=== PATIENT | male | born 1955 | race Caucasian/White ===

== ENCOUNTER 2018-02-14 22:23 | Emergency (ER) | payer BC, MEDICARE ==
[~2018-02-14] VITALS: Ht 170.2 cm; Wt 74.8 kg
--- NOTE | 2018-02-14 22:23 | NUR ---
ARRIVAL PATIENT ARRIVED VIA [facility]. NOTED COPIOUS AMOUNT OF HUNTER BLOOD, PUNGENT SMELL, AND DRIED BROWN BLOOD TO FACE AND CHEST. MOVED TO ER BED WITH ASSIST X4. SL X2 INITIATED. LABS DRAWN. DR. OLIVIER IN TO SEE PT. FAMILY AT BEDSIDE.
[2018-02-14] MEDS ORDERED: NS 1000ML 1,000 ML STA (22:25)
[2018-02-14] MEDS ORDERED: NS 1000ML 1,000 ML ONE (22:27)
[2018-02-14 22:30] VITALS: BP 126/75
[2018-02-14 22:30] LABS: BASOPHIL # 0.1 10^3/uL (0.0-0.1); BASOPHIL % 0.7 % (0.0-0.2); EOSINOPHIL # 0.2 10^3/uL (0.0-0.2); EOSINOPHIL % 1.3 % (0.0-5.0); HEMOGLOBIN 13.9 g/dL (13.9-16.3); LYMPHOCYTES # 3.1 10^3/uL (1.0-4.8); LYMPHOCYTES % 21.8 % (24.0-44.0); MEAN CELL HGB 29.9 pg (26-34); MEAN CELL HGB CONCENTRATION 31.7 g/dL (33-37); MEAN CORP VOLUME 94.4 fL (78-100); MEAN PLATELET VOLUME 14.1 fL (7.8-11.0); MONOCYTES # 1.2 10^3/uL (0.3-0.8); MONOCYTES % 8.7 % (5.0-12.0); NEUTROPHIL # 9.5 10^3/uL (1.8-7.7); RED CELL DISTRIBUTION WIDTH 13.8 % (11.5-14.5); WHITE BLOOD CELL 14.2 10^3/uL (4.5-11.0)
--- NOTE | 2018-02-14 22:31 | ER.PDOC ---
General Chief Complaint: Requesting Medical Care Stated Complaint: GI BLEED Time seen by MD: 10:00 Source: patient, family History of Present Illness Initial Comments went to transfer him out of his seat and noticed large pool of bloody dark loose stool. He fell when he tried to stand up. She denies his having any prior history of ulcer,GI bleeding,abdominal surgery or issues, or being on blood thinners. Timing/Duration: 1 hour Severity/Quality: other (Shakes his head no when asked if he is having abdominal pain) Associated Symptoms: dark stools Prior symptoms/Treatment: No Similar symptoms previous, No Recenly Seen Allergies: Coded Allergies: naproxen (Unverified Allergy, Unknown, HIVES, TONGUE SWELLING, 02/14/18) Home Meds Reported Medications Carbidopa/Levodopa (SINEMET 25-100 MG TABLET) 1 Each Tablet, 1 EACH PO Q4, TABLET 02/14/18 Past Medical History Medical History: other (Guillian-Randolph; West Nile Virus) Surgical History: other (G tube) Constitutional: denies no symptoms reported, denies see HPI, denies chills, denies diaphoresis, denies fever, denies malaise; weakness; denies other EENTM: denies no symptoms reported, denies see HPI, denies eye pain, denies blurred vision, denies tearing, denies double vision, denies ear pain, denies ear discharge, denies nose pain, denies nose congestion, denies throat pain, denies throat swelling, denies mouth pain, denies mouth swelling, denies other Respiratory: denies no symptoms reported, denies see HPI, denies cough, denies orthopnea, denies shortness of breath, denies SOB with exertion, denies SOB at rest, denies stridor, denies wheezing, denies other Cardiovascular: denies no symptoms reported, denies see HPI, denies chest pain , denies edema, denies irregular heart rate, denies lightheadedness, denies palpitations, denies syncope, denies other ABD/GI (ROS): rectal bleeding Genitourinary: denies no symptoms reported, denies see HPI, denies burning, denies dysuria, denies discharge, denies frequency, denies flank pain, denies hematuria, denies incontinence, denies pain, denies urgency, denies other Skin: denies no symptoms reported, denies see HPI, denies change in color, denies change in hair/nails, denies dryness, denies lesions, denies lumps, denies rash, denies other All Other Systems: Reviewed and Negative Physical Exam General Appearance: WD/WN, Anxious, Moderate Distress EENT: eyes nml inspection, nml ENT inspection, pharynx nml Neck: nml inspection, non-tender Respiratory: chest non-tender, lungs clear, normal breath sounds, no respiratory distress, no accessory muscle use Cardiovascular: Normal Peripheral Pulses, Regular Rate, Rhythm, No Edema, No Gallop, No JVD, No Murmur Gastrointestinal: Normal Bowel Sounds, No Organomegaly, No Pulsatile Mass, Non Tender, Soft, Other (G tube in place with what appears to be black fluid dried in it) Pelvic: Normal External Exam Male Genitalia: Normal Genitalia Rectal: Normal Exam Back: Normal Inspection, No CVA Tenderness, No Vertebral Tenderness Extremities: Non-Tender, Normal Inspection, No Pedal Edema, No Calf Tenderness , Normal Capillary Refill, Other Neurologic/Psychiatric: bead trimmer II-XII NML as Tested, No Motor/Sensory Deficits, Alert, Normal Mood/Affect, Oriented x 3, Motor Weakness, Other (weakness to all 4 extremities which is chronic) Skin: Warm/Dry, Pallor, Other (cool) Lymphatic: No Adenopathy Results/Orders Results/Orders Laboratory Tests Test 02/14/18 22:25 White Blood Count 14.2 10^3/uL (4.5-11.0) Red Blood Count 4.65 10^6/uL (4.50-5.90) Hemoglobin 13.9 g/dL (13.9-16.3) Hematocrit 43.9 % (37.0-53.0) Mean Corpuscular Volume 94.4 fL (78-100) Mean Corpuscular Hemoglobin 29.9 pg (26-34) Mean Corpuscular Hemoglobin Concent 31.7 g/dL (33-37) Red Cell Distribution Width 13.8 % (11.5-14.5) Platelet Count 232 10^3/uL (150-400) Mean Platelet Volume 14.1 fL (7.8-11.0) Neutrophils (%) (Auto) 67.0 % (41.0-85.0) Lymphocytes (%) (Auto) 21.8 % (24.0-44.0) Monocytes (%) (Auto) 8.7 % (5.0-12.0) Neutrophils # (Auto) 9.5 10^3/uL (1.8-7.7) Lymphocytes # (Auto) 3.1 10^3/uL (1.0-4.8) Monocytes # (Auto) 1.2 10^3/uL (0.3-0.8) Absolute Immature Granulocyte (auto 0.07 10^3 u/L (0-2) Eosinophils % 1.3 % (0.0-5.0) Basophils % 0.7 % (0.0-0.2) Basophils # 0.1 10^3/uL (0.0-0.1) Eosinophil Count 0.2 10^3/uL (0.0-0.2) Prothrombin Time 11.7 SEC (9.8-11.9) Prothrombin Time INR (Non-Therap) 1.2 Activated Partial Thromboplast Time < 21.0 SEC (24.67-30.72) Sodium Level 141 mmol/L (132-145) Potassium Level 4.5 mmol/L (3.6-5.2) Chloride Level 103.0 mmol/L (96-109) Carbon Dioxide Level 24.9 mmol/L (20.0-32) Anion Gap 17.6 Blood Urea Nitrogen 29 mg/dL (7-18) Creatinine 0.98 mg/dL (0.59-1.40) Estimated GFR () 93.5 (>/=60) BUN/Creatinine Ratio 29.0 Glucose Level 239 mg/dL (70-110) Calcium Level 9.3 mg/dL (8.4-10.5) Total Bilirubin 0.5 mg/dL (0.2-1.0) Aspartate Amino Transf (AST/SGOT) 19 U/L (0-35) Alanine Aminotransferase (ALT/SGPT) 16 U/L (12-78) Alkaline Phosphatase 85 U/L (50-136) Total Protein 7.6 g/dL (6.4-8.2) Albumin 3.6 g/dL (3.4-5.0) Globulin 4.0 Lipase 84 U/L (114-286) Percent Immature Gran (Cell Imm) 0.50 % (0.00-0.50) Helicobacter pylori Screen NEGATIVE (NEGATIVE) Departure Time of Disposition: 23:08 Disposition: 02 XFER SHT-TRM HOSP Impression: Primary Impression: GI bleed Additional Impression: Hemorrhagic shock Condition: Critical If Transfer, List PT Destinati: [facility] ER-acceptance obtained;Pt sent with 2 units O neg blood Referrals: KAYLEE HANSEN (PCP) PRIMARY CARE PROVIDER Duration or Time Spent with Pa: 46 min Critical Care Note Total Time (mins): 40 Comments I spoke with flight crew regarding protonix octreotide and tranexemic acid. They want to start those in f light instead of waiting for staff here to mix it. Pt is doing somewhat better, bettr color,cleaned up, SD=767, SYS BP 117. Okay for transfer Problem Qualifiers ALBERTO OLIVIER MD Feb 14, 2018 22:31
[2018-02-14] MEDS ORDERED: CARB1TAB2 PO (22:36)
--- NOTE | 2018-02-14 22:40 | NUR ---
STATUS PATIENT COOL AND CLAMMY. COPIOUS AMOUNT OF RED BLOOD NOTED. CLOTHING CUT OFF AND DISPOSED OF IN RECEPTICLE-PATIENT FAMILY REQUEST. PARTIAL SPONGE BATH PROVIDED. LINENS CHANGED. GOWN APPLIED WITH WARM BLANKET. PEG TUBE DRAIN SPONGE CHANGED AT THIS TIME. REPOSITIONED TO COMFORT.
[2018-02-14 22:42] LABS: CALCIUM 9.3 mg/dL (8.4-10.5); CARBON DIOXIDE 24.9 mmol/L (20.0-32)
[2018-02-14] MEDS ORDERED: ZOFRAN ONE (23:00)
--- NOTE | 2018-02-14 23:11 | NUR ---
TRANSFER PATIENT TO [facility] VIA [facility]. 2 UNITS "O-" BLOOD SENT FOR TRANSFUSION ENROUTE TO [facility] BY [facility]. NS 2 LITERS SENT PER REQUEST OF [facility] CREW. PATIENT TRANSFERRED IN STABLE CONDITION. FAMILY AT SIDE, WILL MEET PATIENT AT [facility].
[2018-02-14 23:14] VITALS: BP 112/87
--- NOTE | 2018-02-14 23:19 | NUR ---
REPORT REPORT CALLED TO [facility] ER. SPOKE TO AZ RYDER. NO QUESTIONS ASKED. HISTORY PROVIDED WITH ETA.
[2018-02-14] MEDS ORDERED: ZOFRAN IV STA (23:20)
[2018-02-14] MEDS ORDERED: NS 1000ML 1,000 ML IV ONE ×2 (23:30)
[2018-02-14 23:51] VITALS: BP 112/87
== END 2018-02-14 23:11 | disposition short-term general hospital (02) ==
LOC: EDBD 22:23 → ER 22:23
DX: K92.2 Gastrointestinal hemorrhage, unspecified (principal); R57.8 Other shock; Z93.1 Gastrostomy status; Z88.6 Allergy status to analgesic agent
CPT/HCPCS: 80053; 83690; 85025; 85610; 85730; 86677; 86885; 86900 ×3; 86901; 86921; 96374; 99291; J2405; J7030; P9016

== ENCOUNTER → 2018-04-21 | Outpatient (CLI) | payer MEDICARE ==
[~2018-04-21] MED LIST: CARB1TAB2 PO
--- NOTE | 2018-04-21 12:41 | DIREP ---
PROCEDURE:XR BARIUM SWALLOW - MODIFIED COMPARISON:None. INDICATIONS: Aspiration TECHNIQUE:A comprehensive fluoroscopic examination of swallowing was performed, utilizing a variety of barium consistencies. Digital sequential fluoroscopic images were obtained with patient in the upright sitting position in the lateral projection. The patient ingested thin and thick barium as well as barium coated villalobos units. FINDINGS: ORAL PHASE:Normal. PHARYNGEAL PHASE:Vallecular and piriform sinus retention was noted which partially clear during re-swallowing. ASPIRATION:Supraglottic laryngeal penetration and trace tracheal aspiration was demonstrated. OTHER:Negative. FLUORO TIME: 4.1 minutes NUMBER OF IMAGES: 3 CONCLUSION: 1. Supraglottic laryngeal penetration and trace tracheal aspiration noted as described above. Dictated by: Francisco Cantrell M.D. on 04/21/2018 at 12:51 PM
== END | disposition home or self-care (01) ==
LOC: RAD 10:38
PROVIDERS: ATTEND Internal Medicine Gastroenterology
DX: R13.10 Dysphagia, unspecified (principal); G21.3 Postencephalitic parkinsonism; Z93.1 Gastrostomy status
CPT/HCPCS: 74230; 92611; G8996; G8997; G8998

== ENCOUNTER 2018-08-15 10:29 | Inpatient (IN) | payer MEDICARE ==
[~2018-08-15] VITALS: Ht 170.2 cm; Wt 77.6 kg
--- NOTE | 2018-08-15 10:29 | NUR ---
ARRIVAL PT ARRIVED VIA WHEELCHAIR TO ER 6 C/O POSSIBLE GI BLEED PER . 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 PT STATES THAT PT HAS BEEN "TIRED" THE PAST FEW DAYS AND SHE NOTICED DARK STOOLS TODAY. NO ACUTE DISTRESS NOTED. EDP NOTIFIED OF PT ARRIVAL.
[2018-08-15] MEDS ORDERED: NS 1000ML 1,000 ML STA (10:38)
[2018-08-15 10:51] LABS: BASOPHIL # 0.1 10^3/uL (0.0-0.1); BASOPHIL % 0.5 % (0.0-0.2); EOSINOPHIL # 0.1 10^3/uL (0.0-0.2); EOSINOPHIL % 0.6 % (0.0-5.0); HEMOGLOBIN 13.9 g/dL (13.9-16.3); LYMPHOCYTES # 2.2 10^3/uL (1.0-4.8); LYMPHOCYTES % 13.8 % (24.0-44.0); MEAN CELL HGB 29.8 pg (26-34); MEAN CELL HGB CONCENTRATION 31.3 g/dL (33-37); MEAN CORP VOLUME 95.3 fL (78-100); MEAN PLATELET VOLUME 13.2 fL (7.8-11.0); MONOCYTES % 12.3 % (5.0-12.0); NEUTROPHIL # 11.7 10^3/uL (1.8-7.7); NEUTROPHILS % 72.2 % (41.0-85.0); RED CELL DISTRIBUTION WIDTH 14.9 % (11.5-14.5); WHITE BLOOD CELL 16.2 10^3/uL (4.5-11.0)
[2018-08-15 11:08] LABS: CALCIUM 9.2 mg/dL (8.4-10.5); CARBON DIOXIDE 23.7 mmol/L (20.0-32)
--- NOTE | 2018-08-15 11:15 | ER.PDOC ---
General Chief Complaint: Requesting Medical Care Stated Complaint: DIARRHEA TRAVEL OUT OF US: No Time seen by MD: 11:11 Source: patient History of Present Illness Timing/Duration: unsure Severity: mild Modifying Factors: improves with cold therapy Associated Symptoms: denies symptoms Allergies: Coded Allergies: naproxen (Unverified Allergy, Unknown, HIVES, TONGUE SWELLING, 02/14/18) Home Meds Reported Medications Carbidopa/Levodopa (SINEMET 25-100 MG TABLET) 1 Each Tablet, 1 EACH PO Q4, TABLET 02/14/18 Past Medical History Medical History: other (ugi bleed) Surgical History: other Family History Significant Family History: no pertinent family hx Social History Smoking: non-smoker Alcohol Use: none Drug Use: none Reviewed Nursing Reviewed: Vital Signs, Abn. Noted Review of Systems All Other Systems: Reviewed and Negative Physical Exam General Appearance: No Apparent Distress EENT: eyes nml inspection Neck: Non-Tender Respiratory: chest non-tender CVS: reg rate & rhythm Gastrointestinal: Normal Bowel Sounds Back: Normal Inspection Extremities: Normal Range of Motion Neurologic/Psychiatric: supervisor paint II-XII NML as Tested Skin: Normal Color Lymphatic: No Adenopathy Results/Orders Results/Orders Laboratory Tests Test 08/15/18 10:46 White Blood Count 16.2 10^3/uL (4.5-11.0) Red Blood Count 4.66 10^6/uL (4.50-5.90) Hemoglobin 13.9 g/dL (13.9-16.3) Hematocrit 44.4 % (37.0-53.0) Mean Corpuscular Volume 95.3 fL (78-100) Mean Corpuscular Hemoglobin 29.8 pg (26-34) Mean Corpuscular Hemoglobin Concent 31.3 g/dL (33-37) Red Cell Distribution Width 14.9 % (11.5-14.5) Platelet Count 177 10^3/uL (150-400) Mean Platelet Volume 13.2 fL (7.8-11.0) Neutrophils (%) (Auto) 72.2 % (41.0-85.0) Lymphocytes (%) (Auto) 13.8 % (24.0-44.0) Monocytes (%) (Auto) 12.3 % (5.0-12.0) Neutrophils # (Auto) 11.7 10^3/uL (1.8-7.7) Lymphocytes # (Auto) 2.2 10^3/uL (1.0-4.8) Monocytes # (Auto) 2.0 10^3/uL (0.3-0.8) Absolute Immature Granulocyte (auto 0.10 10^3 u/L (0-2) Eosinophils % 0.6 % (0.0-5.0) Basophils % 0.5 % (0.0-0.2) Basophils # 0.1 10^3/uL (0.0-0.1) Eosinophil Count 0.1 10^3/uL (0.0-0.2) Prothrombin Time 11.4 SEC (9.8-11.9) Prothrombin Time INR (Non-Therap) 1.1 Activated Partial Thromboplast Time 20.3 SEC (24.67-30.72) Stool Occult Blood (IFOB) POSITIVE (NEGATIVE) Sodium Level 146 mmol/L (132-145) Potassium Level 4.5 mmol/L (3.6-5.2) Chloride Level 109.0 mmol/L (96-109) Carbon Dioxide Level 23.7 mmol/L (20.0-32) Anion Gap 17.8 Blood Urea Nitrogen 56 mg/dL (7-18) Creatinine 0.79 mg/dL (0.59-1.40) Estimated GFR () 119.5 (>/=60) BUN/Creatinine Ratio 70.0 Glucose Level 125 mg/dL (70-110) Calcium Level 9.2 mg/dL (8.4-10.5) Total Bilirubin 0.5 mg/dL (0.2-1.0) Aspartate Amino Transf (AST/SGOT) 14 U/L (0-35) Alanine Aminotransferase (ALT/SGPT) 19 U/L (12-78) Alkaline Phosphatase 77 U/L (50-136) Total Protein 7.7 g/dL (6.4-8.2) Albumin 3.6 g/dL (3.4-5.0) Globulin 4.1 Amylase Level 38 U/L (25-115) Lipase 76 U/L (114-286) Percent Immature Gran (Cell Imm) 0.60 % (0.00-0.50) Helicobacter pylori Screen NEGATIVE (NEGATIVE) Consult/PCP Time Consult/PCP Called: 12:11 Consult/PCP: dr garcia Departure Time of Disposition: 12:22 Disposition: 09 ADMITTED INPATIENT Impression: Primary Impression: Upper GI bleed Condition: Improved Referrals: PCP,UNKNOWN (PCP) PRIMARY CARE PROVIDER Duration or Time Spent with Pa: 2 hrs JOEL DELAROSA MD Aug 15, 2018 11:15
[2018-08-15] MEDS ORDERED: PROTONIX IV IV STA (11:47)
--- NOTE | 2018-08-15 11:50 | NUR ---
DR PAMELA DELAROSA ON PHONE WITH DR SANTIAGO
[2018-08-15] MEDS ORDERED: PROTONIX IV 80 MG in NS 100ML 100 ML IV SCH (12:00)
[2018-08-15] MEDS ORDERED: NS 1000ML 1,000 ML SCH (12:00)
[2018-08-15] MEDS ORDERED: PROTONIX IV IV ONE (12:25)
[2018-08-15 12:35] VITALS: BP 139/83
--- NOTE | 2018-08-15 12:45 | NUR ---
PT ARRIVED TO UNIT ACCOMPANIED BY . ASSISTED TRANSFER TO BED. TRANSFER UNSTEADY. GAIT UNSTEADY. PT UNABLE TO TALK. STATES HE HAD WEST NILE VIRUS WHICH IMPAIRED HIS MOBILITY AND SPEECH. PERICARE PROVIDED BY STAFF ONCE IN BED. ASSESSMENT AND HISTORY PROVIDED BY D/T PT MEDICAL CONDITION. RASH NOTED TO PERINEAL AREA. PEG TUBE NOTED TO [facility]. STATES HE HAS HAD IT FOR 8 YEARS. IS PRIMARY CAREGIVER. LIVES AT HOME WITH NO ASSISTANCE FROM A HOME HEALTH AGENCY. ASSISTS WITH ALL ADLS AT HOME. NO S/S OF DISTRESS NOTED. ASSESSMENT COMPLETED CHARTED
[2018-08-15 13:27] VITALS: BP 123/66
--- NOTE | 2018-08-15 13:45 | NUR ---
PT REQUESTING THAT SHE GIVE PT HIS HOME MEDICATIONS AND REFUSED TO HAVE THE MEDICATIONS THAT THE PHARMACY PROVIDES. DR SANTIAGO NOTIFIED OF HOME MEDICATIONS. HOME MEDICATIONS CONTINUED. NOTIFIED TO LET STAFF KNOW BEFORE SHE ADMINISTERS MEDICATIONS SO MEDICATION ADMINISTRATION CAN BE DOCUMENTED
[2018-08-15] MEDS ORDERED: WATER ONE (13:47)
[2018-08-15] MEDS ORDERED: CARB1CAP PO ×2 (14:07)
[2018-08-15] MEDS ORDERED: RASA1TAB4 PO (14:07)
[2018-08-15] MEDS ORDERED: ROPI0.5T PO (14:07)
[2018-08-15] MEDS ORDERED: GUAI600T31 PO (14:07)
[2018-08-15] MEDS ORDERED: MUCINEX PO PRN (14:30)
[2018-08-15] MEDS: SINEMET 25/100 PO SCH ×2 (16:08→20:00)
--- NOTE | 2018-08-15 16:14 | PCM.HP ---
History of Present Illness Reason for Visit: Dark stools History of Present Illness Patient is a 63 M PMH of West Nile Encephalitis, Dysphagia s/p G-tube placement presenting with dark stools that started in the last 24 hours. Patient has hx of bleeding caused by G-tube several months ago. is patient's caregiver and she states that noticed dark, tarry stools that started today and she wanted patient evaluated. Patient has no other complaints. In ER Hg was over 14. FOBT was positive. Patient has no nausea, vomiting, fevers, chills, or any other concerning symptoms per . Patient did have Leukocytosis on lab evaluation and BUN is elevated. No other concerns/findings. 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) Past Surgical History: Other (G-tube, EGD, tracheostomy) Past Social History Smoke: No Alcohol: none Lives: with Family Travel Hx EBOLA RISK:Travel to/contact w: No Is pt experiencing any Ebola s: No Review of Systems Constitutional: No: Fever, Chills Eyes: No: Conjunctivae inflammation, Eyelid inflammation ENT: Nose discharge, Nose congestion Respiratory: No: Cough, Shortness of breath, SOB with excertion, Wheezing Cardiovascular: No: Chest Pain, Palpitations, Edema Gastrointestinal: Melena; No: Nausea, Vomiting, Abdominal Pain, Hematochezia Genitourinary: No Incontinence, No Hematuria, No Retention Musculoskeletal: No: neck pain, back pain Skin: Rash; No: Lesions, Jaundice Neurological: Weakness, Incoordination; No: Change in speech, Confusion, Seizures Allergies: Coded Allergies: naproxen (Unverified Allergy, Unknown, HIVES, TONGUE SWELLING, 02/14/18) Scheduled Carbidopa/Levodopa (Sinemet 25-100 Mg Tablet), 1 EACH PO Q4, (Reported) Carbidopa/Levodopa (Rytary ER 23.75 mg-95 mg Cap), 1 EACH PO ACB, (Reported) Carbidopa/Levodopa (Rytary ER 23.75 mg-95 mg Cap), 1 EACH PO ACL, (Reported) Rasagiline Mesylate (Rasagiline Mesylate), 1 MILLIGRAM PO DAILY24, (Reported) Ropinirole Hcl (Requip), 1 TAB PO QID, (Reported) Scheduled PRN Guaifenesin (Mucinex), 1 TAB PO PRN PRN for SHORTNESS OF BREATH, (Reported) VTE VTE Risk Total Score: 4 VTE Risk Score VTE Risk: Score 0-1 = Low Risk (Aggressive mobilization; early ambulation; no VTE prophylaxis required) Score 2: Moderate Risk (Intermittent/Pneumatic Compression Device OR Lovenox/Heparin/Coumadin) Score 3-4: High Risk (Intermittent/Pneumatic Compression Device AND Lovenox/Heparin/Coumadin) Score > or =5: Highest Risk (Intermittent/Pneumatic Compression Device AND Lovenox/Heparin/Coumadin) VTE VTE Present on Admission: No Currently receiving anticoagul: No VTE Risk Total Score: 4 Exam Vital Signs Vital Signs Date Time Temp Pulse Resp B/P (MAP) Pulse Ox O2 Delivery O2 Flow Rate FiO2 08/15/18 13:27 98.8 111 18 123/66 (85) 96 Room Air 98.8 General Appearance: Alert, Oriented X3, Cooperative, No acute distress HEENT: Atraumatic, PERRLA, EOMI Respiratory: Clear to auscultation, Normal air movement Cardiovascular: Regular rate, Normal S1, Normal S2, No murmurs Abdominal: Normal bowel sounds, Soft, No tenderness Extremities: No edema, Normal pulses, No tenderness/swelling Skin: No breakdown, Rash Neuro: Normal tone, Sensation intact, Cranial nerves 3-12 NL, Other ( Neurological deficits from Encephalitis) Psych/Mental Status: Mental status NL, Mood NL Assessment/Plan Assessment/Plan Assessment/Plan 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 Plan 1. Melena: check CBC in AM. Monitor for symptoms. Start PPI. 2. Leukocytosis: check UA, CXR 3. West Nile Encephalitis: supportive care, continue home meds. Patient has expression of Parkinson's like symptoms treated by ID/Neurologist. BALAJI SANTIAGO MD Aug 15, 2018 16:14
--- NOTE | 2018-08-15 16:47 | DIREP ---
PROCEDURE:CHEST 1 VIEW COMPARISON:[facility], [place], XRAY CHEST 2 VWS, 10/05/2015, 10:42 PM. INDICATIONS:Leukocytosis FINDINGS: LUNGS/PLEURA:No significant pulmonary parenchymal abnormalities. No effusions. VASCULATURE:Normal. Unremarkable pulmonary vasculature. CARDIAC:Normal. No cardiac silhouette abnormality or cardiomegaly. MEDIASTINUM:Normal. No visible mass or adenopathy. BONES:Degenerative changes of the spine and shoulders. OTHER:Negative. CONCLUSION:No acute cardiopulmonary disease. No change. Dictated by: Jimbo Ornelas M.D. on 08/15/2018 at 04:44 PM
[2018-08-15] MEDS: REQUIP PO SCH ×2 (17:00→21:00)
[2018-08-15 17:10] LABS: HEMOGLOBIN 12.5 g/dL (13.9-16.3)
[2018-08-15 17:41] VITALS: BP 136/68
--- NOTE | 2018-08-15 18:11 | NUR ---
NOTIFIED DR SANTIAGO OF [facility] OF 12.5
[2018-08-15 19:15] VITALS: BP 129/66
--- NOTE | 2018-08-15 20:30 | NUR ---
SINEMENT 25/100 X1 AND REQUIP .5 MG NOT ADMINISTERED PER REQUEST, SHE STATES, SHE DOES NOT GIVE PT ANYTHING AFTER HE HAS FALLEN ASLEEP
[2018-08-15 21:26] LABS: BILIRUBIN,URINE NEGATIVE (NEGATIVE); UROBILINOGEN,URINE NORMAL (NEGATIVE)
[2018-08-15 21:30] LABS: APPEARANCE,URINE CLEAR (CLEAR); UA COLOR STRAW (YELLOW)
[2018-08-16] VITALS: BP 136/60
--- NOTE | 2018-08-16 | NUR ---
0000 dose of sinement not given per , she states, she does not give him anything once he has gone to sleep
[2018-08-16 04:00] VITALS: BP 129/64
[2018-08-16] MEDS: SINEMET 25/100 PO SCH ×6 (04:00→20:26)
--- NOTE | 2018-08-16 05:16 | NUR ---
0400 dose of sinement not administered, states she does not wake pt to give meds once he's asleep
[2018-08-16 06:05] LABS: BASOPHIL # 0.1 10^3/uL (0.0-0.1); BASOPHIL % 0.6 % (0.0-0.2); EOSINOPHIL # 0.1 10^3/uL (0.0-0.2); EOSINOPHIL % 1.1 % (0.0-5.0); HEMOGLOBIN 11.4 g/dL (13.9-16.3); LYMPHOCYTES # 1.4 10^3/uL (1.0-4.8); MEAN CELL HGB 29.5 pg (26-34); MEAN CELL HGB CONCENTRATION 31.1 g/dL (33-37); MEAN CORP VOLUME 94.8 fL (78-100); MONOCYTES # 1.4 10^3/uL (0.3-0.8); MONOCYTES % 13.3 % (5.0-12.0); NEUTROPHIL # 7.7 10^3/uL (1.8-7.7); NEUTROPHILS % 71.5 % (41.0-85.0); WHITE BLOOD CELL 10.8 10^3/uL (4.5-11.0)
[2018-08-16 06:52] LABS: CALCIUM 8.8 mg/dL (8.4-10.5); CARBON DIOXIDE 25.5 mmol/L (20.0-32)
--- NOTE | 2018-08-16 07:06 | NUR ---
Bedside report received from FREDDY Kurtz and assumed care.
--- NOTE | 2018-08-16 07:06 | NUR ---
REPORT TO CANDY RYDER
[2018-08-16] MEDS ORDERED: PROTONIX PO ONE (07:21)
[2018-08-16] MEDS: AZILECT PO SCH (07:30)
[2018-08-16] MEDS ORDERED: WATER ONE ×3 (07:32→15:53)
--- NOTE | 2018-08-16 07:37 | NUR ---
Blood glucose resulted to 94, continue to monitor.
--- NOTE | 2018-08-16 07:50 | NUR ---
Zero residual from the G tube, tube feeding (Jevity 1.5) given.
[2018-08-16 08:00] VITALS: BP 122/61
--- NOTE | 2018-08-16 08:00 | NUR ---
As per report received from FREDDY Kurtz patient on NPO but can have tube feeding of Jevity 1.5 (1 cartoon is 8 oz and give 2 cartoons per meal).
[2018-08-16] MEDS: REQUIP PO SCH ×4 (09:00→21:16)
[2018-08-16] MEDS ORDERED: PROTONIX PO SCH (09:00)
--- NOTE | 2018-08-16 09:10 | NUR ---
Dr. Aguilera at bedside. Assess the patient and discuss plan of care. New order received. NS with 20 K at 100 ml/hr. Surgical consult with Dr. Sparks. Restart Protonix drip G-tube meds only. CMP at 1800.
[2018-08-16] MEDS ORDERED: VALIUM IV STA (09:41)
[2018-08-16] MEDS: PROTONIX IV 80 MG in NS 100ML 100 ML IV SCH ×2 (09:56→20:27)
[2018-08-16] MEDS: NS 1000ML/KCL 20MEQ 1,000 ML IV SCH ×2 (09:56→19:30)
--- NOTE | 2018-08-16 10:09 | PRM.PN ---
Subjective Subjective Date: Aug 16, 2018 Time: 10:00 Subjective Patient Hg dropped overnight. Restarted IV PPI. Consulted Surgery. No other issues for patient. No fever, no chills. VTE VTE Risk Total Score: 4 VTE Risk Score VTE Risk: Score 0-1 = Low Risk (Aggressive mobilization; early ambulation; no VTE prophylaxis required) Score 2: Moderate Risk (Intermittent/Pneumatic Compression Device OR Lovenox/Heparin/Coumadin) Score 3-4: High Risk (Intermittent/Pneumatic Compression Device AND Lovenox/Heparin/Coumadin) Score > or =5: Highest Risk (Intermittent/Pneumatic Compression Device AND Lovenox/Heparin/Coumadin) Review of Systems Allergies: Coded Allergies: naproxen (Unverified Allergy, Unknown, HIVES, TONGUE SWELLING, 02/14/18) Scheduled Carbidopa/Levodopa (Sinemet 25-100 Mg Tablet), 1 EACH PO Q4, (Reported) Carbidopa/Levodopa (Rytary ER 23.75 mg-95 mg Cap), 1 EACH PO ACB, (Reported) Carbidopa/Levodopa (Rytary ER 23.75 mg-95 mg Cap), 1 EACH PO ACL, (Reported) Rasagiline Mesylate (Rasagiline Mesylate), 1 MILLIGRAM PO DAILY24, (Reported) Ropinirole Hcl (Requip), 1 TAB PO QID, (Reported) Scheduled PRN Guaifenesin (Mucinex), 1 TAB PO PRN PRN for SHORTNESS OF BREATH, (Reported) Objective Vitals and I/O Vital Sign - Last 24 Hours 08/15/18 08/15/18 08/15/18 08/15/18 12:31 12:31 12:35 13:18 Temp 97.8 98.5 97.8 97.8 98.5 97.8 Pulse 124 124 124 Resp 18 18 18 B/P (MAP) 139/83 (101) Pulse Ox 98 98 O2 Delivery Room Air 08/15/18 08/15/18 08/15/18 08/15/18 13:27 16:30 17:41 19:15 Temp 98.8 98.6 98.8 98.6 Pulse 111 97 Resp 18 20 B/P (MAP) 123/66 (85) 136/68 (90) Pulse Ox 96 93 O2 Delivery Room Air Room Air Room Air Room Air 08/15/1818 18 08/16/18 19:15 00:00 04:00 07:00 Temp 98.4 98.2 97.6 98.4 98.2 97.6 Pulse 103 89 85 Resp 20 20 20 B/P (MAP) 129/66 (87) 136/60 (85) 129/64 (85) Pulse Ox 96 O2 Delivery Room Air Room Air Room Air Room Air Intake and Output 08/15/18 08/15/18 08/16/18 15:00 23:00 07:00 Intake Total 0 ml Output Total 350 ml 250 ml Balance -350 ml -250 ml General: Alert, Oriented X3, Cooperative, No acute distress HEENT: Atraumatic, EOMI, Mucous membr. 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) Psych/Mental Status: Mental status NL, Mood NL Course Sepsis Screening Results: Posi: NEGATIVE Sepsis Qualifier/Stage: NO DEFINITE RISK Vitals & review Data Vital Sign - Last 24 Hours 08/15/18 08/15/18 08/15/18 08/15/18 12:31 12:31 12:35 13:18 Temp 97.8 98.5 97.8 97.8 98.5 97.8 Pulse 124 124 124 Resp 18 18 18 B/P (MAP) 139/83 (101) Pulse Ox 98 98 O2 Delivery Room Air 08/15/18 08/15/18 08/15/18 08/15/18 13:27 16:30 17:41 19:15 Temp 98.8 98.6 98.8 98.6 Pulse 111 97 Resp 18 20 B/P (MAP) 123/66 (85) 136/68 (90) Pulse Ox 96 93 O2 Delivery Room Air Room Air Room Air Room Air 08/15/1818 18 08/16/18 19:15 00:00 04:00 07:00 Temp 98.4 98.2 97.6 98.4 98.2 97.6 Pulse 103 89 85 Resp 20 20 20 B/P (MAP) 129/66 (87) 136/60 (85) 129/64 (85) Pulse Ox 96 O2 Delivery Room Air Room Air Room Air Room Air Intake and Output 08/15/18 08/15/18 08/16/18 15:00 23:00 07:00 Intake Total 0 ml Output Total 350 ml 250 ml Balance -350 ml -250 ml Laboratory Tests Test 08/15/18 00:00 08/15/18 10:46 08/15/18 16:49 08/16/18 05:33 Urine Collection Type VOID Urine Color STRAW Urine Appearance CLEAR Urine Bilirubin NEGATIVE MG/DL Urine Ketones NEGATIVE Urine Specific [place] 1.015 Urine pH 5 Urine Protein NEGATIVE Urine Urobilinogen NORMAL Urine Nitrate NEGATIVE Urine Leukocyte Esterase NEGATIVE Urine Blood NEGATIVE Urine Glucose NORMAL White Blood Count 16.2 10^3/uL 10.8 10^3/uL Red Blood Count 4.66 10^6/uL 3.86 10^6/uL Hemoglobin 13.9 g/dL 12.5 g/dL 11.4 g/dL Hematocrit 44.4 % 38.2 % 36.6 % Mean Corpuscular Volume 95.3 fL 94.8 fL Mean Corpuscular Hemoglobin 29.8 pg 29.5 pg Mean Corpuscular Hemoglobin Concent 31.3 g/dL 31.1 g/dL Red Cell Distribution Width 14.9 % 15.0 % Platelet Count 177 10^3/uL 154 10^3/uL Mean Platelet Volume 13.2 fL 14.0 fL Neutrophils (%) (Auto) 72.2 % 71.5 % Lymphocytes (%) (Auto) 13.8 % 13.0 % Monocytes (%) (Auto) 12.3 % 13.3 % Neutrophils # (Auto) 11.7 10^3/uL 7.7 10^3/uL Lymphocytes # (Auto) 2.2 10^3/uL 1.4 10^3/uL Monocytes # (Auto) 2.0 10^3/uL 1.4 10^3/uL Absolute Immature Granulocyte (auto 0.10 10^3 u/L 0.05 10^3 u/L Eosinophils % 0.6 % 1.1 % Basophils % 0.5 % 0.6 % Basophils # 0.1 10^3/uL 0.1 10^3/uL Eosinophil Count 0.1 10^3/uL 0.1 10^3/uL Prothrombin Time 11.4 SEC Prothrombin Time INR (Non-Therap) 1.1 Activated Partial Thromboplast Time 20.3 SEC Stool Occult Blood (IFOB) POSITIVE Sodium Level 146 mmol/L 145 mmol/L Potassium Level 4.5 mmol/L 4.0 mmol/L Chloride Level 109.0 mmol/L 111.0 mmol/L Carbon Dioxide Level 23.7 mmol/L 25.5 mmol/L Anion Gap 17.8 12.5 Blood Urea Nitrogen 56 mg/dL 28 mg/dL Creatinine 0.79 mg/dL 0.66 mg/dL Estimated GFR () 119.5 147.0 BUN/Creatinine Ratio 70.0 42.0 Glucose Level 125 mg/dL 94 mg/dL Calcium Level 9.2 mg/dL 8.8 mg/dL Total Bilirubin 0.5 mg/dL 0.3 mg/dL Aspartate Amino Transf (AST/SGOT) 14 U/L 19 U/L Alanine Aminotransferase (ALT/SGPT) 19 U/L 7 U/L Alkaline Phosphatase 77 U/L 62 U/L Total Protein 7.7 g/dL 6.4 g/dL Albumin 3.6 g/dL 3.2 g/dL Globulin 4.1 3.2 Amylase Level 38 U/L Lipase 76 U/L Percent Immature Gran (Cell Imm) 0.60 % 0.50 % Helicobacter pylori Screen NEGATIVE Current Medications Medications (Trade) Dose Ordered Sig/Kathleen PRN Reason Start Time Stop Time Status Last Admin Carbidopa/Levodopa (Sinemet 25/100) 1 each Q4 08/15/18 16:00 09/14/18 15:59 08/15/18 16:08 Guaifenesin (Mucinex) 600 mg PRN PRN SHORTNESS OF BREATH 08/15/18 14:30 09/14/18 14:29 Pantoprazole Sodium 80 mg/ Sodium Chloride 100 ml @ 10 mls/hr Q10H 08/16/18 09:30 09/15/18 09:29 08/16/18 09:56 Potassium Chloride/Sodium Chloride 1,000 ml @ 100 mls/hr Q10H 08/16/18 09:30 09/15/18 09:29 08/16/18 09:56 Rasagiline (Azilect) 1 mg ACB 12/22/18 06:30 09/15/18 06:29 08/16/18 07:30 Ropinirole HCl (Requip) 0.5 mg QID 08/15/18 17:00 09/14/18 16:59 08/16/18 09:00 Assessment/Plan Assessment/Plan Assessment/Plan 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 Plan 1. Melena: check CBC in AM. Monitor for symptoms. Start PPI. 2. Leukocytosis: check UA, CXR 3. West Nile Encephalitis: supportive care, continue home meds. Patient has expression of Parkinson's like symptoms treated by ID/Neurologist. Plan 1. Melena/Upper GI bleed: patient having drop in Hemoglobin overnight. Will restart IV PPI. Surgery consulted. Discussed with family. Will need EGD. Repeat CBC this evening. 2. Leukocytosis: Resolved. UA/CXR negative for infection. 3. West Nile Encephalitis: supportive care, continue home meds. Patient has expression of Parkinson's like symptoms treated by ID/Neurologist. 4. Anemia: 2/2 Upper GI bleed, transfuse PRN. BALAJI SANTIAGO MD Aug 16, 2018 10:09
--- NOTE | 2018-08-16 11:35 | NUR ---
Dr. Sparks at bedside. Assess the patient and discuss plan of care with patient and . Discuss EGD and colonoscopy withe the patient and . New order received. Place patient on SCD.
[2018-08-16 12:00] VITALS: BP 123/54
--- NOTE | 2018-08-16 12:01 | NUR ---
Blood glucose resulted to 130, continue to monitor.
--- NOTE | 2018-08-16 12:05 | NUR ---
Tube feeding for lunch given per Dr. Sparks's order.
--- NOTE | 2018-08-16 12:57 | NUR ---
Notified Dr. Sparks that patient and family decided to do both EGD and colonoscopy tomorrow.
[2018-08-16] MEDS ORDERED: REGLAN IV STA (13:52)
[2018-08-16] MEDS ORDERED: MOVIPREP POWDER PACKET PO STA (13:52)
--- NOTE | 2018-08-16 14:00 | NUR ---
Dr. Sparks at bedside. Assess the patient regarding smoking, drinking and drug use. Consent signed for EGD and colonoscopy tomorrow at 0745 am. ALEKSEY Lees notified OR team. New order received. Reglan 10 MG IV STAT. Start full preop dose now, give movieprep via G tube, 8 OZ Q30 minutes until complete. NPO after MN except meds. Continue scheduled tube feeding, NPO after MN. Flush tube with 60 ml free H20 after meds and feeding. RVAB.
--- NOTE | 2018-08-16 14:30 | NUR ---
Movieprep started with the first 8 OZ.
[2018-08-16 16:00] VITALS: BP 120/55
--- NOTE | 2018-08-16 16:40 | NUR ---
Blood glucose resulted to 100, continue to monitor.
[2018-08-16 18:09] LABS: BASOPHIL # 0.1 10^3/uL (0.0-0.1); BASOPHIL % 0.7 % (0.0-0.2); EOSINOPHIL # 0.2 10^3/uL (0.0-0.2); EOSINOPHIL % 2.6 % (0.0-5.0); HEMOGLOBIN 10.4 g/dL (13.9-16.3); LYMPHOCYTES # 1.5 10^3/uL (1.0-4.8); LYMPHOCYTES % 17.9 % (24.0-44.0); MEAN CELL HGB 29.7 pg (26-34); MEAN CELL HGB CONCENTRATION 31.1 g/dL (33-37); MEAN CORP VOLUME 95.4 fL (78-100); MEAN PLATELET VOLUME 13.1 fL (7.8-11.0); MONOCYTES # 1.4 10^3/uL (0.3-0.8); MONOCYTES % 16.1 % (5.0-12.0); NEUTROPHIL # 5.2 10^3/uL (1.8-7.7); RED CELL DISTRIBUTION WIDTH 14.9 % (11.5-14.5); WHITE BLOOD CELL 8.4 10^3/uL (4.5-11.0)
--- NOTE | 2018-08-16 18:15 | NUR ---
Movieprep ended with the last 8 oz.
--- NOTE | 2018-08-16 18:40 | NUR ---
Bedside report given to FREDDY Granados and relinquished care.
--- NOTE | 2018-08-16 18:55 | NUR ---
Dr. Sparks called the unit. New order received. 8 oz free water at 2100 and 2200 respectively.
[2018-08-16 19:29] VITALS: BP 118/62
[2018-08-16] MEDS ORDERED: NS 100ML 100 ML IV ONE (20:16)
[2018-08-16] MEDS ORDERED: PROTONIX IV IV ONE (20:19)
[2018-08-17] VITALS (16 sets, daily range): BP systolic 88–145; BP diastolic 44–96
[2018-08-17] MEDS: SINEMET 25/100 PO SCH ×6 (04:00→20:00)
[2018-08-17] MEDS ORDERED: PROTONIX IV IV ONE (05:33)
[2018-08-17] MEDS ORDERED: NS 100ML 100 ML IV ONE (05:35)
[2018-08-17] MEDS: PROTONIX IV 80 MG in NS 100ML 100 ML IV SCH (05:36)
[2018-08-17] MEDS: NS 1000ML/KCL 20MEQ 1,000 ML IV SCH ×2 (05:37→12:15)
[2018-08-17 05:45] LABS: BASOPHIL % 0.4 % (0.0-0.2); EOSINOPHIL # 0.3 10^3/uL (0.0-0.2); EOSINOPHIL % 3.3 % (0.0-5.0); HEMOGLOBIN 8.4 g/dL (13.9-16.3); LYMPHOCYTES # 1.5 10^3/uL (1.0-4.8); LYMPHOCYTES % 19.3 % (24.0-44.0); MEAN CELL HGB 29.6 pg (26-34); MEAN CELL HGB CONCENTRATION 30.8 g/dL (33-37); MEAN CORP VOLUME 96.1 fL (78-100); MEAN PLATELET VOLUME 13.5 fL (7.8-11.0); MONOCYTES % 13.8 % (5.0-12.0); NEUTROPHIL # 4.7 10^3/uL (1.8-7.7); NEUTROPHILS % 62.7 % (41.0-85.0); RED CELL DISTRIBUTION WIDTH 14.8 % (11.5-14.5); WHITE BLOOD CELL 7.5 10^3/uL (4.5-11.0)
--- NOTE | 2018-08-17 05:55 | CNH ---
DATE OF CONSULTATION: 08/16/2018 CHIEF COMPLAINT: Acute GI bleed. HISTORY OF PRESENT ILLNESS: This is a 63-year-old male who has apparently been admitted to Med/Surg floor to the service of hospitalist. He had melanotic stools. He has some significant medical history. Apparently, he had an upper GI bleed per report of his . In January of this year, he was evaluated at another facility, had an EGD that showed a gastric ulcer near his G-tube. During this admission, the reports he had had some dark tarry stools. The patient has had no complaint of abdominal pain. Apparently, he has an FOBT that was positive. He has had no nausea, vomiting, chills or other systemic concerns per the chart. 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 PAST SURGICAL HISTORY: Includes previous EGD, previous G-tube, and previous trach. He has had no previous colonoscopy. SOCIAL HISTORY: Positive for smoked in the past. Positive for alcohol in the past. Negative for illicit drug use. ALLERGIES: INCLUDE NAPROSYN PER CHART. OUTPATIENT MEDICATIONS: Per list. INPATIENT MEDICATIONS: Per MAR. FAMILY HISTORY: Essentially noncontributory. REVIEW OF SYSTEMS: Limited as the patient has limited verbalization. PHYSICAL EXAMINATION: GENERAL: This is an awake 63-year-old male who appears to be, in no acute distress. On initial evaluation, he was seen with his in the room to provide history. He is pleasant, cooperative. BMI is noted be 23.9. VITAL SIGNS: Most recent vitals show temperature 98.4, pulse 86, respiratory rate 20, blood pressure 123/54. HEENT: Normocephalic with minimal temporal wasting. NECK: Supple. He has trach changes noted, previous trach. HEART: Has regular rate and rhythm. LUNGS: Clear anteriorly, bilaterally. ABDOMEN: The bowel sounds are positive, soft. He has no tenderness. On exam, he has a palpable G-tube in place. EXTREMITIES: Show positive radial pulses bilaterally. He has some wasting in lower extremities. He has dorsal pedal pulses noted. NEUROLOGIC: He has no acute findings. He has chronic changes consistent with a history. SKIN AND INTEGUMENT: Warm and dry. LABORATORY STUDIES: On admission, hemoglobin was 13.9, most recent is 11.4, most recent platelet count is 154. His white count has gone from 16.2 to 10.8. Chemistry on admission showed BUN of 56, repeat today was 28, creatinine is 0.66. Potassium is 4.0. Sodium today is 145, albumin today is 3.2. He had a chest x-ray prior to admission shows no acute cardiopulmonary findings. ASSESSMENT: 1. Anemia, secondary to acute blood loss. 2. Gastrointestinal bleeding. 3. History of dysphagia after West Nile encephalitis. 4. G-tube status in place. PLAN: 1. The patient is seen and examined. Chart is reviewed. 2. I have discussed with the family and allow them to have time to consider for themselves and then prefer to have an EGD and a colonoscopy. If he is deeply sedated, we should limit the number of times he require sedation for evaluation of screening. With their consent to such, I have ordered a bowel prep. We will plan to do an EGD and colonoscopy tomorrow morning. Solis Sparks DO DR: CHICO/noy JOB# [id number] CC: Drew Aguilera M.D.
--- NOTE | 2018-08-17 06:15 | NUR ---
RECEIVED REPORT, ASSUMED CARE OF PT.
[2018-08-17] MEDS: AZILECT PO SCH (06:30)
--- NOTE | 2018-08-17 06:30 | NUR ---
MEDS GIVEN BY SPOUSE
[2018-08-17 06:33] LABS: CALCIUM 7.6 mg/dL (8.4-10.5); CARBON DIOXIDE 26.8 mmol/L (20.0-32)
--- NOTE | 2018-08-17 07:03 | NUR ---
PT POSITIONED ON LEFT SIDE, SS ENEMA GIVEN. PT UP TO BSC FOR BM.
[2018-08-17] MEDS ORDERED: WATER ONE (07:08)
[2018-08-17] MEDS ORDERED: LIDOCAINE 2% VIAL ONE (07:12)
[2018-08-17] MEDS ORDERED: SUBLIMAZE ONE (07:12)
[2018-08-17] MEDS ORDERED: DIPRIVAN IV ONE (07:13)
[2018-08-17] MEDS ORDERED: LACTATED RINGERS 1,000 ML ONE (07:38)
[2018-08-17] MEDS: REQUIP PO SCH ×4 (09:00→20:42)
--- NOTE | 2018-08-17 09:08 | NUR ---
PT RETURNED FROM OR TO ROOM VIA BED, V/S MONITORED IN PLACE. ICE CHIPS OFFERED, OFFERED CANDY CANE. REPORT RECEIVED, ASSUMED CARE OF PT.
--- NOTE | 2018-08-17 09:35 | OPH ---
DATE OF SURGERY: 08/17/2018 PREOPERATIVE DIAGNOSIS: History of acute blood loss anemia secondary to GI bleed. POSTOPERATIVE DIAGNOSIS: Mild gastritis. G-tube intact. Small hiatal hernia. Healthy appearing colon within the limitations of prep. SURGEON: Solis Sparks DO ELECTRICAL POWER STATION TECHNICIAN: OR staff. ANESTHESIA: Total intravenous anesthesia by Heriberto Rodriguez CRNA. PROCEDURES PERFORMED: 1. Esophagogastroduodenoscopy with biopsy. 2. Long flexible colonoscopy to cecum. SPECIMENS: Gastric mucosa to path. ESTIMATED BLOOD LOSS: 3 mL. COUNTS: At the completion of the case, counts were correct per OR staff. DESCRIPTION OF PROCEDURE: The patient is a very pleasant 63-year-old male. He has sequelae of previous illness and injury. Prior to procedure, informed consent was obtained. At the time of procedure, he was taken to the operative suite and placed in supine position. After time-out, he was placed in left lateral recumbent position. After adequate sedation, esophagogastroduodenoscope was advanced transorally with pneumoinsufflation distally in second portion of duodenum. In the distal portion of the second portion of the duodenum there appeared to be a narrowing; however, there are no signs of stricture or obstruction. Camera was withdrawn to the level of the duodenal bulb, which was grossly normal and the pylorus was grossly normal. On the posterior wall of the stomach, there was some gastritis and biopsies were obtained. Near the G-tube, there was a small area of erythema consistent with focal gastritis that was biopsied as well. The retroflexed maneuver was performed. The cardia shows a small sliding type hiatal hernia, the fundus was grossly normal. Camera was reduced, stomach was decompressed. Scope was slowly withdrawn. Distal, mid and proximal esophagus were grossly normal. Vocal cords were visualized within normal limits. Camera was removed, procedure was discontinued. The patient remained in the OR. Timeout was previously completed. With adequate sedation, rectal exam was performed. There were no masses. Next, the colonoscope was advanced transanally with pneumoinsufflation proximally to level of cecum. The quality of prep was limited due to the dark stool consistent with upper GI bleed. Cecum was irrigated to allow better exposure. With adequate visualization, the camera was slowly withdrawn to facilitate visualization of the ascending colon, hepatic flexure, transverse colon, splenic flexure, descending colon, sigmoid and rectum. There were no overt masses, polyps, or AVMs. At level 5 cm, camera was retroflexed and reinserted. Anal verge was visualized within normal limits. Camera was reduced. Colon was decompressed. Colonoscope was removed. The patient tolerated this procedure well. There were no acute complications noted. Solis Sparks DO DR: CHICO/noy JOB# [id number] CC: Drew Aguilera M.D.
--- NOTE | 2018-08-17 10:16 | NUR ---
PT DOWNSTAIRS VIA BED WITH RADIOLOGY FOR CT SCAN
--- NOTE | 2018-08-17 10:32 | NUR ---
PT TO ROOM FROM RADIOLOGY, STABLE CONDITION, V/S CONTINUOUS MONITORING IN PLACE.
--- NOTE | 2018-08-17 12:00 | NUR ---
ADMINISTERED MEDICATIONS
--- NOTE | 2018-08-17 12:40 | PRM.PN ---
Subjective Subjective Date: Aug 17, 2018 Time: 12:35 Subjective Patient had EGD this AM. I discussed with Surgery. Pending read of CT for further evaluation. No acute bleed. Labs reviewed, plan of care discussed with family. VTE VTE Risk Total Score: 4 VTE Risk Score VTE Risk: Score 0-1 = Low Risk (Aggressive mobilization; early ambulation; no VTE prophylaxis required) Score 2: Moderate Risk (Intermittent/Pneumatic Compression Device OR Lovenox/Heparin/Coumadin) Score 3-4: High Risk (Intermittent/Pneumatic Compression Device AND Lovenox/Heparin/Coumadin) Score > or =5: Highest Risk (Intermittent/Pneumatic Compression Device AND Lovenox/Heparin/Coumadin) Review of Systems Allergies: Coded Allergies: naproxen (Unverified Allergy, Unknown, HIVES, TONGUE SWELLING, 02/14/18) Scheduled Carbidopa/Levodopa (Sinemet 25-100 Mg Tablet), 1 EACH PO Q4, (Reported) Carbidopa/Levodopa (Rytary ER 23.75 mg-95 mg Cap), 1 EACH PO ACB, (Reported) Carbidopa/Levodopa (Rytary ER 23.75 mg-95 mg Cap), 1 EACH PO ACL, (Reported) Rasagiline Mesylate (Rasagiline Mesylate), 1 MILLIGRAM PO DAILY24, (Reported) Ropinirole Hcl (Requip), 1 TAB PO QID, (Reported) Scheduled PRN Guaifenesin (Mucinex), 1 TAB PO PRN PRN for SHORTNESS OF BREATH, (Reported) Objective Vitals and I/O Vital Sign - Last 24 Hours 08/16/18 08/16/18 08/16/18 08/17/18 16:00 19:29 23:42 00:02 Temp 98.0 97.6 97.9 98.0 97.6 97.9 Pulse 80 88 88 Resp 20 20 20 B/P (MAP) 120/55 (76) 118/62 (80) 114/56 (75) Pulse Ox 97 100 100 O2 Delivery Room Air Room Air Room Air Room Air 08/17/18 08/17/18 08/17/18 08/17/18 06:58 08:35 08:35 08:50 Temp 98.9 98.5 98.9 98.5 Pulse 83 74 Resp 18 18 B/P (MAP) 88/59 (69) 110/44 (66) Pulse Ox 100 100 O2 Delivery Room Air Nasal [place] Nasal [place] O2 Flow Rate 3 3 2 08/17/18 09:00 Temp 98.6 98.6 Pulse 76 Resp 18 B/P (MAP) 113/46 (68) Pulse Ox 98 O2 Delivery Room Air Intake and Output 08/16/18 08/16/18 08/17/18 15:01 23:01 07:01 Intake Total 724 ml 280 ml Output Total 360 ml Balance 364 ml 280 ml General: Alert, Oriented X3, Cooperative, No acute distress HEENT: Atraumatic, EOMI, Mucous membr. moist/pink Neck: Supple, No JVD Lungs: Clear to auscultation, Normal air movement Heart: Regular rate, Normal S1, Normal S2, No murmurs Abdomen: Normal bowel sounds, Soft, No tenderness Extremities: No edema, Normal pulses, No tenderness/swelling Skin: No rashes, No breakdown, No significant lesion Neuro: Normal tone, Sensation intact, Cranial nerves 3-12 NL Psych/Mental Status: Mental status NL, Mood NL Course Sepsis Screening Results: Posi: NEGATIVE Sepsis Qualifier/Stage: NO DEFINITE RISK Vitals & review Data Vital Sign - Last 24 Hours 08/15/18 08/15/18 08/15/18 08/15/18 12:31 12:31 12:35 13:18 Temp 97.8 98.5 97.8 97.8 98.5 97.8 Pulse 124 124 124 Resp 18 18 18 B/P (MAP) 139/83 (101) Pulse Ox 98 98 O2 Delivery Room Air 08/15/18 08/15/18 08/15/18 08/15/18 13:27 16:30 17:41 19:15 Temp 98.8 98.6 98.8 98.6 Pulse 111 97 Resp 18 20 B/P (MAP) 123/66 (85) 136/68 (90) Pulse Ox 96 93 O2 Delivery Room Air Room Air Room Air Room Air 08/15/18 08/16/18 08/16/18 08/16/18 19:15 00:00 04:00 07:00 Temp 98.4 98.2 97.6 98.4 98.2 97.6 Pulse 103 89 85 Resp 20 20 20 B/P (MAP) 129/66 (87) 136/60 (85) 129/64 (85) Pulse Ox 96 O2 Delivery Room Air Room Air Room Air Room Air Intake and Output 08/15/18 08/15/18 08/16/18 15:00 23:00 07:00 Intake Total 0 ml Output Total 350 ml 250 ml Balance -350 ml -250 ml Laboratory Tests Test 08/15/18 00:00 08/15/18 10:46 08/15/18 16:49 08/16/18 05:33 Urine Collection Type VOID Urine Color STRAW Urine Appearance CLEAR Urine Bilirubin NEGATIVE MG/DL Urine Ketones NEGATIVE Urine Specific [place] 1.015 Urine pH 5 Urine Protein NEGATIVE Urine Urobilinogen NORMAL Urine Nitrate NEGATIVE Urine Leukocyte Esterase NEGATIVE Urine Blood NEGATIVE Urine Glucose NORMAL White Blood Count 16.2 10^3/uL 10.8 10^3/uL Red Blood Count 4.66 10^6/uL 3.86 10^6/uL Hemoglobin 13.9 g/dL 12.5 g/dL 11.4 g/dL Hematocrit 44.4 % 38.2 % 36.6 % Mean Corpuscular Volume 95.3 fL 94.8 fL Mean Corpuscular Hemoglobin 29.8 pg 29.5 pg Mean Corpuscular Hemoglobin Concent 31.3 g/dL 31.1 g/dL Red Cell Distribution Width 14.9 % 15.0 % Platelet Count 177 10^3/uL 154 10^3/uL Mean Platelet Volume 13.2 fL 14.0 fL Neutrophils (%) (Auto) 72.2 % 71.5 % Lymphocytes (%) (Auto) 13.8 % 13.0 % Monocytes (%) (Auto) 12.3 % 13.3 % Neutrophils # (Auto) 11.7 10^3/uL 7.7 10^3/uL Lymphocytes # (Auto) 2.2 10^3/uL 1.4 10^3/uL Monocytes # (Auto) 2.0 10^3/uL 1.4 10^3/uL Absolute Immature Granulocyte (auto 0.10 10^3 u/L 0.05 10^3 u/L Eosinophils % 0.6 % 1.1 % Basophils % 0.5 % 0.6 % Basophils # 0.1 10^3/uL 0.1 10^3/uL Eosinophil Count 0.1 10^3/uL 0.1 10^3/uL Prothrombin Time 11.4 SEC Prothrombin Time INR (Non-Therap) 1.1 Activated Partial Thromboplast Time 20.3 SEC Stool Occult Blood (IFOB) POSITIVE Sodium Level 146 mmol/L 145 mmol/L Potassium Level 4.5 mmol/L 4.0 mmol/L Chloride Level 109.0 mmol/L 111.0 mmol/L Carbon Dioxide Level 23.7 mmol/L 25.5 mmol/L Anion Gap 17.8 12.5 Blood Urea Nitrogen 56 mg/dL 28 mg/dL Creatinine 0.79 mg/dL 0.66 mg/dL Estimated GFR () 119.5 147.0 BUN/Creatinine Ratio 70.0 42.0 Glucose Level 125 mg/dL 94 mg/dL Calcium Level 9.2 mg/dL 8.8 mg/dL Total Bilirubin 0.5 mg/dL 0.3 mg/dL Aspartate Amino Transf (AST/SGOT) 14 U/L 19 U/L Alanine Aminotransferase (ALT/SGPT) 19 U/L 7 U/L Alkaline Phosphatase 77 U/L 62 U/L Total Protein 7.7 g/dL 6.4 g/dL Albumin 3.6 g/dL 3.2 g/dL Globulin 4.1 3.2 Amylase Level 38 U/L Lipase 76 U/L Percent Immature Gran (Cell Imm) 0.60 % 0.50 % Helicobacter pylori Screen NEGATIVE Current Medications Medications (Trade) Dose Ordered Sig/Kathleen PRN Reason Start Time Stop Time Status Last Admin Carbidopa/Levodopa (Sinemet 25/100) 1 each Q4 08/15/18 16:00 09/14/18 15:59 08/15/18 16:08 Guaifenesin (Mucinex) 600 mg PRN PRN SHORTNESS OF BREATH 08/15/18 14:30 09/14/18 14:29 Pantoprazole Sodium 80 mg/ Sodium Chloride 100 ml @ 10 mls/hr Q10H 08/16/18 09:30 09/15/18 09:29 08/16/18 09:56 Potassium Chloride/Sodium Chloride 1,000 ml @ 100 mls/hr Q10H 08/16/18 09:30 09/15/18 09:29 08/16/18 09:56 Rasagiline (Azilect) 1 mg ACB 08/16/18 06:30 09/15/18 06:29 08/16/18 07:30 Ropinirole HCl (Requip) 0.5 mg QID 08/15/18 17:00 09/14/18 16:59 08/16/18 09:00 Assessment/Plan Assessment/Plan Assessment/Plan 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 Plan 1. Melena/Upper GI bleed: s/p EGD/Cscope. No acute bleeding. Surgery following. Pending CT abdomen. Hg under 9. Cont PPI BID 2. Leukocytosis: Resolved. UA/CXR negative for infection. 3. West Nile Encephalitis: supportive care, continue home meds. Patient has expression of Parkinson's like symptoms treated by ID/Neurologist. 4. Anemia: 2/2 Upper GI bleed, transfuse PRN. BALAJI SANTIAGO MD Aug 17, 2018 12:39
--- NOTE | 2018-08-17 14:39 | NUR ---
IV FLUIDS DISCONTINUED, IV SALINE LOCKED, FLUSHED WITH NORMAL SALINE, PATENT, NO SWELLING OR REDNESS NOTED.
--- NOTE | 2018-08-17 16:09 | NUR ---
MEDICATION GIVEN WITH MEAL BY SPOUSE
--- NOTE | 2018-08-17 16:59 | NUR ---
HOME MEDS ADMINISTERED BY VIA TUBE
--- NOTE | 2018-08-17 17:13 | DIREP ---
PROCEDURE:CT ABDOMEN/PELVIS W/ CONTRAST COMPARISON:None. INDICATIONS:GIB TECHNIQUE:Axial images were created through the abdomen and pelvis with non-ionic intravenous contrast material. No oral contrast was administered. Sagittal and coronal reconstructions were performed from source images. FINDINGS: LOWER CHEST:Moderate dependant atelectasis. Trace right and small left pleural fluid. The LIVER: No hepatic lesion. Portal veins are patent. BILIARY: Gallbladder is distended, high-density material within the gallbladder lumen may represent sludge or stones. Question mild enhancement of the gallbladder wall, not obviously thickened on CT. No intra or extrahepatic biliary dilation. PANCREAS: Unremarkable. SPLEEN: Nonenlarged. There is a 1.5 cm low-density lesion in the posterior aspect of the spleen which may represent a cyst or hemangioma. An additional smaller low-density areas also noted. KIDNEYS: No renal mass. No hydronephrosis or collecting system stone identified. Small areas of increased density within the intrarenal collecting system are favored to represent early excretion of contrast, less likely to represent small nonobstructing intrarenal collecting system stones. Mild smooth diffuse enhancement of the ureters bilaterally, nonspecific but may suggest inflammation or infection. No periureteral stranding. ADRENALS: Normal. AORTA/VASCULAR: Normal. No aneurysm or dissection. RETROPERITONEUM: No adenopathy or mass. BOWEL/MESENTERY: Gastrostomy tube. No evidence of obstruction. Appendix not visualized, no pericecal inflammatory changes to suggest appendicitis. Liquid within the rectum may suggest diarrheal illness or be related to reported hemorrhage. Few sigmoid diverticula. No imaging evidence of diverticulitis. ABDOMINAL WALL: Small left inguinal hernia containing only fat. URINARY BLADDER: Inherently limited evaluation of the wall; mildly enhancing diffusely without focal thickening. The urinary bladder is mildly distended PELVIS: Prostatic tissue present. No adenopathy. BONES: No bony lesion or fracture. OTHER: No free air or fluid. CONCLUSION: 1. Liquid content within the rectum may suggest diarrheal illness or be related to reported hemorrhage. 2. Mild smooth diffuse enhancement of the ureters bilaterally and urinary bladder wall, nonspecific but may suggest inflammation or infection. 3. Gallbladder is distended, not uncommon with fasting. There is high-density material within the gallbladder however which may suggest underlying stones or sludge. Question mild diffuse enhancement of the gallbladder wall, no obvious gallbladder wall thickening on CT or pericholecystic fluid. If suspected gallbladder pathology, recommend ultrasound. 4. Multiple incidental findings, as above. Dictated by: Rossi Tilley MD on 08/17/2018 at 04:59 PM
--- NOTE | 2018-08-17 18:20 | NUR ---
REPORT GIVEN TO ONCOMING SHIFT
--- NOTE | 2018-08-17 18:21 | NUR ---
DR HAWTHORNE CALLED M/S UNIT, ORDERS TO RESUME TUBE FEEDING RECEIVED. 2 CANS JEVITY 1.5CAL GIVEN TO SPOUSE FOR FEEDING.
--- NOTE | 2018-08-17 18:46 | NUR ---
PT VOMITED AMOUNT OF TUBE FEEDING, LINENS CHANGED, PT CLEANED UP
[2018-08-17 19:10] LABS: BASOPHIL % 0.4 % (0.0-0.2); EOSINOPHIL # 0.2 10^3/uL (0.0-0.2); LYMPHOCYTES # 0.9 10^3/uL (1.0-4.8); LYMPHOCYTES % 10.9 % (24.0-44.0); MEAN CELL HGB 29.6 pg (26-34); MEAN CELL HGB CONCENTRATION 30.6 g/dL (33-37); MEAN CORP VOLUME 96.7 fL (78-100); MEAN PLATELET VOLUME 13.1 fL (7.8-11.0); MONOCYTES # 0.6 10^3/uL (0.3-0.8); MONOCYTES % 7.9 % (5.0-12.0); NEUTROPHIL # 6.3 10^3/uL (1.8-7.7); NEUTROPHILS % 77.6 % (41.0-85.0); PLATELET COUNT 107 10^3/uL (150-400); RED CELL DISTRIBUTION WIDTH 14.9 % (11.5-14.5); WHITE BLOOD CELL 8.1 10^3/uL (4.5-11.0)
--- NOTE | 2018-08-17 19:15 | NUR ---
PT RECEIVED FEEDING THROUGH PEG TUBE 0645 AND THEN PT CAME TO NURSE AND SAID PT WAS THROWING FEEDING BACK UP. DR HAWTHORNE NOTIFIED AND ORDERED TO DECREASE FEEDINGS FROM 2 CANS TO 1 CAN AND TO GIVE 10MG REGLAN IV ONE TIME. PT REQUESTED TO NOT TAKE REGLAN AT THIS TIME AND WAIT TO SEE IF HE BECAME NAUSEATED TO TAKE IT. WILL CONTINUE TO ASSESS. Addendum: 08/18/18 at 0118 by Kim Huffman RN-M/S ALEKSEY PT RECEIVED FEEDING AT 1845 NOT 0645.
[2018-08-17] MEDS ORDERED: REGLAN IV STA (19:33)
[2018-08-17] MEDS: PROTONIX IV IV SCH (21:11)
[2018-08-17 21:36] LABS: ANISOCYTOSIS 1+ (NEGATIVE); BURR CELLS 2+ (NEGATIVE); MICROCYTOSIS 1+ (NEGATIVE); OVALOCYTES 1+ (NEGATIVE)
[2018-08-17] MEDS ORDERED: REGLAN IV ONE (22:00)
[2018-08-18] VITALS (7 sets, daily range): BP systolic 111–129; BP diastolic 47–75
[2018-08-18] MEDS: SINEMET 25/100 PO SCH ×6 (04:00→20:00)
[2018-08-18 05:10] LABS: BASOPHIL % 0.3 % (0.0-0.2); EOSINOPHIL # 0.3 10^3/uL (0.0-0.2); EOSINOPHIL % 4.1 % (0.0-5.0); HEMOGLOBIN 8.7 g/dL (13.9-16.3); LYMPHOCYTES # 0.8 10^3/uL (1.0-4.8); MEAN CELL HGB 29.2 pg (26-34); MEAN CELL HGB CONCENTRATION 30.4 g/dL (33-37); MEAN PLATELET VOLUME 13.3 fL (7.8-11.0); MONOCYTES # 0.4 10^3/uL (0.3-0.8); MONOCYTES % 5.9 % (5.0-12.0); NEUTROPHIL # 5.6 10^3/uL (1.8-7.7); NEUTROPHILS % 78.6 % (41.0-85.0); RED CELL DISTRIBUTION WIDTH 14.9 % (11.5-14.5); WHITE BLOOD CELL 7.1 10^3/uL (4.5-11.0)
[2018-08-18 05:27] LABS: CALCIUM 8.1 mg/dL (8.4-10.5); CARBON DIOXIDE 26.7 mmol/L (20.0-32)
[2018-08-18] MEDS: AZILECT PO SCH (06:54)
--- NOTE | 2018-08-18 09:18 | DIET.OP ---
Nutrition Asmt/Malnutrit 2-17 Nutritional Screening: Nutritional Screening Diagnosis: Dark Stool Pertinent Medical Hx/Surgical: Per MD: West Nile Encephalitis, Dysphagia s/p G-tube placement presenting with dark stools that started in the last 24 hours Subjective Information: The patient has had some issues over the past day or two tolerating his feedings. He has experienced some vomiting. MD decreased feedings from 2 cans to 1 can after the most recent feeding. Current TF provides approximately 1050 calories, 46g of protein, 540 mL of water. Previous regimen of 2 cans q8h provides 2100 calories, 91g of protein, and 1080 mL of water. Current Diet Order/Nutrition S: Jevity 1.5, 1 can q8h Pertinent Meds Current Medications Medications (Trade) Dose Ordered Sig/Kathleen PRN Reason Start Time Stop Time Status Last Admin Carbidopa/Levodopa (Sinemet 25/100) 1 each Q4 08/15/18 16:00 09/14/18 15:59 08/17/18 20:00 Guaifenesin (Mucinex) 600 mg PRN PRN SHORTNESS OF BREATH 08/15/18 14:30 09/14/18 14:29 Pantoprazole Sodium (Protonix Iv) 40 mg BID 08/17/18 21:00 09/16/18 20:59 08/17/18 21:11 Rasagiline (Azilect) 1 mg ACB 08/16/18 06:30 09/15/18 06:29 08/18/18 06:54 Ropinirole HCl (Requip) 0.5 mg QID 08/15/18 17:00 09/14/18 16:59 08/17/18 20:42 Pertinent Labs Laboratory Tests 08/17/18 19:03: White Blood Count 8.1, Red Blood Count 3.04L, Hemoglobin 9.0L, Hematocrit 29.4L , Mean Corpuscular Volume 96.7, Mean Corpuscular Hemoglobin 29.6, Mean Corpuscular Hemoglobin Concent 30.6L, Red Cell Distribution Width 14.9H, Platelet Count 107L, Mean Platelet Volume 13.1H, Neutrophils (%) (Auto) 77.6, Lymphocytes (%) (Auto) 10.9L, Monocytes (%) (Auto) 7.9, Neutrophils # (Auto) 6.3 , Lymphocytes # (Auto) 0.9L, Monocytes # (Auto) 0.6, Absolute Immature Granulocyte (auto 0.02, Eosinophils % 3.0, Basophils % 0.4H, Basophils # 0.0, Poikilocytosis 2+, Anisocytosis 1+, Microcytosis 1+, Ovalocytes 1+, Caret Cells 2 +, Eosinophil Count 0.2, Percent Immature Gran (Cell Imm) 0.20 08/18/18 05:02: White Blood Count 7.1, Red Blood Count 2.98L, Hemoglobin 8.7L, Hematocrit 28.6L , Mean Corpuscular Volume 96.0, Mean Corpuscular Hemoglobin 29.2, Mean Corpuscular Hemoglobin Concent 30.4L, Red Cell Distribution Width 14.9H, Platelet Count 123L, Mean Platelet Volume 13.3H, Neutrophils (%) (Auto) 78.6, Lymphocytes (%) (Auto) 11.0L, Monocytes (%) (Auto) 5.9, Neutrophils # (Auto) 5.6 , Lymphocytes # (Auto) 0.8L, Monocytes # (Auto) 0.4, Absolute Immature Granulocyte (auto 0.01, Eosinophils % 4.1, Basophils % 0.3H, Basophils # 0.0, Eosinophil Count 0.3H, Percent Immature Gran (Cell Imm) 0.10, Sodium Level 144, Potassium Level 3.8, Chloride Level 110.0H, Carbon Dioxide Level 26.7, Anion Gap 11.1, Blood Urea Nitrogen 9, Creatinine 0.63, Estimated GFR () 155.1, BUN/Creatinine Ratio 14.0, Glucose Level 88, Calcium Level 8.1L , Total Bilirubin 0.6, Aspartate Amino Transf (AST/SGOT) 18, Alanine Aminotransferase (ALT/SGPT) 15, Alkaline Phosphatase 66, Total Protein 5.2L, Albumin 2.6L, Globulin 2.6 Height (Feet): 5 Height (Inches): 7 Current Weight: 152 %IBW: 104 Weight Status: Appropriate GI Comments Dark Stool Food Allergies: No Cultural/Ethnic/Oriental Orthodox Flaquita: none reported BEE in Kcals: Use Current Weight Calories/Kcals/Kg: MsJ * 1.2-1.3 Kcals Calculated: 6715-5406 Protein: Use Current Weight Protein g/k.8-1.0 g/kg Protein Calculated: 55g-69g Fluid: ml: 0979-1877 or 1 mL/kcal Nutritional Problem: Nutr. Problems Present Problems: Inadequate Tube Feeding Volume Etiology: GI symptoms Signs/Symptoms: nausea and vomiting on 2 cans q8h Protein-Calorie Malnutrition: N/A Is there a minimum of two crit: No RD Comments: Intervention: 1. Continue current TF regimen, Increase to 2 cans q8h as patient tolerates feeds 2. Work with medical team for best nutrition management for the patient Monitor/evaluate: 1. TF residual 2. Weight status Expected Outcomes Goal: 1. Patient will receive 100% of estimated energy needs from TF regimen over the next 7 days Discharge plan: 1. Discharge plan in progress Malnutrtion/Nutrition Risk Edu: GRETTA Chavez RD Aug 18, 2018 09:18
--- NOTE | 2018-08-18 09:30 | NUR ---
DISCHARGE PLAN CASE MANAGEMENT VISITED WITH PATIENT AND CONCERNING DISCHARGE NEEDS AND CONCERNS. LIVES AT HOME WITH . TAKES CARE OF ALL ADLS FOR PATIENT. HAS MOTORIZED WHEELCHAIR, REGULAR WHEELCHAIR, POTTY CHAIR, AND SHOWER IS SET UP FOR NEEDS. DENIES NEED FOR HOME OXYGEN. REQUESTED TO HAVE HOME HEALTH THAT [facility] FOR FOR SPEECH THERAPY. CHOICE LETTER SIGNED FOR [facility]. REFERRAL FAXED TO [facility] AND [facility] WITH [facility] CONTACTED BY PHONE. DISCHARGE GOAL IS TO DISCHARGE HOME WITH AND [facility] TO FOLLOW. DENIES FURTHER NEEDS AT THIS TIME.
[2018-08-18] MEDS: PROTONIX IV IV SCH (09:54)
[2018-08-18] MEDS: REQUIP PO SCH ×4 (10:11→20:28)
--- NOTE | 2018-08-18 11:48 | PRM.PN ---
Subjective Subjective Date: Aug 18, 2018 Time: 11:35 Subjective Patient Hg stable this AM. Labs/Imaging reviewed. No fevers, no chills. Patient concerned to go home too early. Patient tolerating feeds. VTE VTE Risk Total Score: 4 VTE Risk Score VTE Risk: Score 0-1 = Low Risk (Aggressive mobilization; early ambulation; no VTE prophylaxis required) Score 2: Moderate Risk (Intermittent/Pneumatic Compression Device OR Lovenox/Heparin/Coumadin) Score 3-4: High Risk (Intermittent/Pneumatic Compression Device AND Lovenox/Heparin/Coumadin) Score > or =5: Highest Risk (Intermittent/Pneumatic Compression Device AND Lovenox/Heparin/Coumadin) Review of Systems Allergies: Coded Allergies: naproxen (Unverified Allergy, Unknown, HIVES, TONGUE SWELLING, 02/14/18) Scheduled Carbidopa/Levodopa (Sinemet 25-100 Mg Tablet), 1 EACH PO Q4, (Reported) Carbidopa/Levodopa (Rytary ER 23.75 mg-95 mg Cap), 1 EACH PO ACB, (Reported) Carbidopa/Levodopa (Rytary ER 23.75 mg-95 mg Cap), 1 EACH PO ACL, (Reported) Rasagiline Mesylate (Rasagiline Mesylate), 1 MILLIGRAM PO DAILY24, (Reported) Ropinirole Hcl (Requip), 1 TAB PO QID, (Reported) Scheduled PRN Guaifenesin (Mucinex), 1 TAB PO PRN PRN for SHORTNESS OF BREATH, (Reported) Objective Vitals and I/O Vital Sign - Last 24 Hours 08/17/18 08/17/18 08/17/18 08/17/18 12:35 13:35 14:35 15:35 Temp 98.0 98.1 98.0 98.1 Pulse 76 80 82 85 Resp 16 16 18 18 B/P (MAP) 124/58 (80) 118/61 (80) 116/61 (79) 106/72 (83) Pulse Ox 97 96 97 96 O2 Delivery Room Air Room Air Room Air Room Air 08/17/18 08/17/18 08/18/18 08/18/18 20:15 23:28 00:09 04:45 Temp 99.0 99.4 99.1 99.0 99.4 99.1 Pulse 79 77 80 Resp 18 18 16 B/P (MAP) 145/96 (112) 113/53 (73) 129/54 (79) Pulse Ox 96 96 97 O2 Delivery Room Air Room Air Room Air Room Air Intake and Output 08/17/18 08/17/18 08/18/18 15:01 23:01 07:01 Intake Total 2870 ml Output Total 1620 ml 400 ml Balance 1250 ml -400 ml General: Alert, Oriented X3, Cooperative, No acute distress HEENT: Atraumatic, PERRLA, EOMI, Mucous membr. moist/pink Neck: Supple, No JVD Lungs: Clear to auscultation, Normal air movement Heart: Regular rate, Normal S1, Normal S2 Abdomen: Normal bowel sounds, Soft, No tenderness, Other (g-tube) Extremities: No edema, Normal pulses, No tenderness/swelling Skin: No rashes, No breakdown, No significant lesion Neuro: Strength at 5/5 X4 ext, Normal tone, Sensation intact, Cranial nerves 3- 12 NL Psych/Mental Status: Mental status NL, Mood NL Course Sepsis Screening Results: Posi: NEGATIVE Sepsis Qualifier/Stage: NO DEFINITE RISK Vitals & review Data Vital Sign - Last 24 Hours 08/15/18 08/15/18 08/15/18 08/15/18 12:31 12:31 12:35 13:18 Temp 97.8 98.5 97.8 97.8 98.5 97.8 Pulse 124 124 124 Resp 18 18 18 B/P (MAP) 139/83 (101) Pulse Ox 98 98 O2 Delivery Room Air 08/15/18 08/15/18 08/15/18 08/15/18 13:27 16:30 17:41 19:15 Temp 98.8 98.6 98.8 98.6 Pulse 111 97 Resp 18 20 B/P (MAP) 123/66 (85) 136/68 (90) Pulse Ox 96 93 O2 Delivery Room Air Room Air Room Air Room Air 08/15/18 08/16/18 08/16/18 08/16/18 19:15 00:00 04:00 07:00 Temp 98.4 98.2 97.6 98.4 98.2 97.6 Pulse 103 89 85 Resp 20 20 20 B/P (MAP) 129/66 (87) 136/60 (85) 129/64 (85) Pulse Ox 96 O2 Delivery Room Air Room Air Room Air Room Air Intake and Output 08/15/18 08/15/18 08/16/18 15:00 23:00 07:00 Intake Total 0 ml Output Total 350 ml 250 ml Balance -350 ml -250 ml Laboratory Tests Test 08/15/18 00:00 08/15/18 10:46 08/15/18 16:49 08/16/18 05:33 Urine Collection Type VOID Urine Color STRAW Urine Appearance CLEAR Urine Bilirubin NEGATIVE MG/DL Urine Ketones NEGATIVE Urine Specific [place] 1.015 Urine pH 5 Urine Protein NEGATIVE Urine Urobilinogen NORMAL Urine Nitrate NEGATIVE Urine Leukocyte Esterase NEGATIVE Urine Blood NEGATIVE Urine Glucose NORMAL White Blood Count 16.2 10^3/uL 10.8 10^3/uL Red Blood Count 4.66 10^6/uL 3.86 10^6/uL Hemoglobin 13.9 g/dL 12.5 g/dL 11.4 g/dL Hematocrit 44.4 % 38.2 % 36.6 % Mean Corpuscular Volume 95.3 fL 94.8 fL Mean Corpuscular Hemoglobin 29.8 pg 29.5 pg Mean Corpuscular Hemoglobin Concent 31.3 g/dL 31.1 g/dL Red Cell Distribution Width 14.9 % 15.0 % Platelet Count 177 10^3/uL 154 10^3/uL Mean Platelet Volume 13.2 fL 14.0 fL Neutrophils (%) (Auto) 72.2 % 71.5 % Lymphocytes (%) (Auto) 13.8 % 13.0 % Monocytes (%) (Auto) 12.3 % 13.3 % Neutrophils # (Auto) 11.7 10^3/uL 7.7 10^3/uL Lymphocytes # (Auto) 2.2 10^3/uL 1.4 10^3/uL Monocytes # (Auto) 2.0 10^3/uL 1.4 10^3/uL Absolute Immature Granulocyte (auto 0.10 10^3 u/L 0.05 10^3 u/L Eosinophils % 0.6 % 1.1 % Basophils % 0.5 % 0.6 % Basophils # 0.1 10^3/uL 0.1 10^3/uL Eosinophil Count 0.1 10^3/uL 0.1 10^3/uL Prothrombin Time 11.4 SEC Prothrombin Time INR (Non-Therap) 1.1 Activated Partial Thromboplast Time 20.3 SEC Stool Occult Blood (IFOB) POSITIVE Sodium Level 146 mmol/L 145 mmol/L Potassium Level 4.5 mmol/L 4.0 mmol/L Chloride Level 109.0 mmol/L 111.0 mmol/L Carbon Dioxide Level 23.7 mmol/L 25.5 mmol/L Anion Gap 17.8 12.5 Blood Urea Nitrogen 56 mg/dL 28 mg/dL Creatinine 0.79 mg/dL 0.66 mg/dL Estimated GFR () 119.5 147.0 BUN/Creatinine Ratio 70.0 42.0 Glucose Level 125 mg/dL 94 mg/dL Calcium Level 9.2 mg/dL 8.8 mg/dL Total Bilirubin 0.5 mg/dL 0.3 mg/dL Aspartate Amino Transf (AST/SGOT) 14 U/L 19 U/L Alanine Aminotransferase (ALT/SGPT) 19 U/L 7 U/L Alkaline Phosphatase 77 U/L 62 U/L Total Protein 7.7 g/dL 6.4 g/dL Albumin 3.6 g/dL 3.2 g/dL Globulin 4.1 3.2 Amylase Level 38 U/L Lipase 76 U/L Percent Immature Gran (Cell Imm) 0.60 % 0.50 % Helicobacter pylori Screen NEGATIVE Current Medications Medications (Trade) Dose Ordered Sig/Kathleen PRN Reason Start Time Stop Time Status Last Admin Carbidopa/Levodopa (Sinemet 25/100) 1 each Q4 08/15/18 16:00 09/14/18 15:59 08/15/18 16:08 Guaifenesin (Mucinex) 600 mg PRN PRN SHORTNESS OF BREATH 08/15/18 14:30 09/14/18 14:29 Pantoprazole Sodium 80 mg/ Sodium Chloride 100 ml @ 10 mls/hr Q10H 08/16/18 09:30 09/15/18 09:29 08/16/18 09:56 Potassium Chloride/Sodium Chloride 1,000 ml @ 100 mls/hr Q10H 08/16/18 09:30 09/15/18 09:29 08/16/18 09:56 Rasagiline (Azilect) 1 mg ACB 08/16/18 06:30 09/15/18 06:29 08/16/18 07:30 Ropinirole HCl (Requip) 0.5 mg QID 08/15/18 17:00 09/14/18 16:59 08/16/18 09:00 Assessment/Plan Assessment/Plan Assessment/Plan 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 Plan 1. Melena/Upper GI bleed: s/p EGD/Cscope. No acute bleeding. Surgery following. Hg stable. Will keep one more day and make sure he tolerates feeds. 2. Leukocytosis: Resolved. UA/CXR negative for infection. 3. West Nile Encephalitis: supportive care, continue home meds. 4. Anemia: 2/2 Upper GI bleed, transfuse PRN. Recheck Hg in AM. BALAJI SANTIAGO MD Aug 18, 2018 11:48
--- NOTE | 2018-08-18 16:27 | PNH ---
DATE: SUBJECTIVE: This is a 63-year-old male, in no acute distress. He is seen in his room with his present. He is appropriately responsive. OBJECTIVE: VITAL SIGNS: Last temperature is 97.9, pulse 69, respiratory rate 20, blood pressure 116/75. HEART: Has regular rate and rhythm. LUNGS: Clear anteriorly bilaterally. ABDOMEN: Bowel sounds are positive. His PEG tube appears intact. LABORATORY DATA: Today show white count 7.1, hemoglobin 8.7, platelet count is 123. Chemistry today shows BUN of 9, creatinine is 0.63. ASSESSMENT: 1. Status post acute upper GI bleed with sequelae. 2. History of feeding tube dependent feeding status. 3. History of West Nile encephalitis with sequela. PLAN: The patient is seen and examined. Chart was reviewed. He will need to be on GI prophylaxis after discharge. Increase diet and activity as tolerated. Solis Sparks DO DR: CHICO/noy JOB# [id number] CC: Drew Aguilera M.D. MTDD
--- NOTE | 2018-08-18 19:02 | NUR ---
Report Received report from Alton Jordan RN
--- NOTE | 2018-08-18 20:28 | NUR ---
Medication administered by spouse
--- NOTE | 2018-08-19 00:18 | NUR ---
Spouse states neurologist stated if patient is sleeping, not to wake up for Sinemet
[2018-08-19] MEDS: SINEMET 25/100 PO SCH ×3 (04:00→08:00)
[2018-08-19 04:37] LABS: BASOPHIL % 0.2 % (0.0-0.2); EOSINOPHIL # 0.5 10^3/uL (0.0-0.2); EOSINOPHIL % 8.6 % (0.0-5.0); HEMOGLOBIN 8.9 g/dL (13.9-16.3); LYMPHOCYTES # 0.9 10^3/uL (1.0-4.8); LYMPHOCYTES % 17.6 % (24.0-44.0); MEAN CELL HGB 29.6 pg (26-34); MEAN CELL HGB CONCENTRATION 30.7 g/dL (33-37); MEAN CORP VOLUME 96.3 fL (78-100); MEAN PLATELET VOLUME 13.7 fL (7.8-11.0); MONOCYTES # 0.6 10^3/uL (0.3-0.8); MONOCYTES % 11.7 % (5.0-12.0); NEUTROPHIL # 3.2 10^3/uL (1.8-7.7); NEUTROPHILS % 61.7 % (41.0-85.0); RED CELL DISTRIBUTION WIDTH 14.9 % (11.5-14.5); WHITE BLOOD CELL 5.2 10^3/uL (4.5-11.0)
[2018-08-19 04:54] LABS: CALCIUM 8.3 mg/dL (8.4-10.5); CARBON DIOXIDE 28.9 mmol/L (20.0-32)
[2018-08-19 05:14] VITALS: BP 129/88
[2018-08-19] MEDS: AZILECT PO SCH (06:30)
--- NOTE | 2018-08-19 07:03 | NUR ---
Spouse to administer patient med
--- NOTE | 2018-08-19 07:04 | NUR ---
Report Report given to Garett Carlton RN
[2018-08-19 08:03] VITALS: BP 118/62
[2018-08-19] MEDS: REQUIP PO SCH (09:00)
[2018-08-19] MEDS ORDERED: PROTONIX PO SCH (09:00)
--- NOTE | 2018-08-19 10:05 | NUR ---
Medication Patient's administers medications through Peg Tube, This RN at bedside to witness. No Residual noted. Patient's used patient's own home medications as per ok from .
[2018-08-19] MEDS ORDERED: FAMO20TA5 PO (10:15)
[2018-08-19] MEDS ORDERED: PANT40TA3 PO (10:16)
--- NOTE | 2018-08-19 10:25 | PRM.DC ---
Discharge Summary Date of Discharge: Aug 19, 2018 Time of Request to Discharge: 10:15 Reason for Visit: Dark stools Additional Comments Patient is a 63 M admitted with Melena. Patient has hx of Upper GI bleed, [place] Encephalitis. Patient was admitted for monitoring. Hg dropped and patient given IV PPI. Surgery consulted for evaluation. Patient underwent EGD/ C-scope, please see operative report for full details. Patient continued on PPI. CT scan ordered for further evaluation of pathology. Patient was restarted on TF and is tolerating. Labs reviewed. Hg has been stable. D/C to f/u outpatient with Surgery within 1-2 weeks. Cont PPI daily, concerned about crushing medication that medication will not be as effective. Ordered H2 Elsa BID x 30 days with PPI. General: Alert, Oriented X3, Cooperative HEENT: Atraumatic, EOMI, Mucous membr. moist/pink Neck: Supple, No JVD Lungs: Clear to auscultation, Normal air movement Heart: Regular rate, Normal S1, Normal S2, No murmurs Abdomen: Normal bowel sounds, Soft, No tenderness, Other (g-tube) Extremities: No edema, Normal pulses, No tenderness/swelling Skin: No rashes, No breakdown, No significant lesion Neuro: Normal tone, Sensation intact, Cranial nerves 3-12 NL, Other (dysarthria , gait abnormality) Psych/Mental Status: Mental status NL, Mood NL Scheduled Carbidopa/Levodopa (Sinemet 25-100 Mg Tablet), 1 EACH PO Q4, (Reported) Carbidopa/Levodopa (Rytary ER 23.75 mg-95 mg Cap), 1 EACH PO ACB, (Reported) Carbidopa/Levodopa (Rytary ER 23.75 mg-95 mg Cap), 1 EACH PO ACL, (Reported) Famotidine (Famotidine), 20 MG PO BID Pantoprazole Sodium (Protonix), 40 MG PO DAILY Rasagiline Mesylate (Rasagiline Mesylate), 1 MILLIGRAM PO DAILY24, (Reported) Ropinirole Hcl (Requip), 1 TAB PO QID, (Reported) Scheduled PRN Guaifenesin (Mucinex), 1 TAB PO PRN PRN for SHORTNESS OF BREATH, (Reported) Sepsis Evaluation @ Discharge Vital Sign - Last 24 Hours 08/15/18 08/15/18 08/15/18 08/15/18 12:31 12:31 12:35 13:18 Temp 97.8 98.5 97.8 97.8 98.5 97.8 Pulse 124 124 124 Resp 18 18 18 B/P (MAP) 139/83 (101) Pulse Ox 98 98 O2 Delivery Room Air 08/15/18 08/15/18 08/15/18 08/15/18 13:27 16:30 17:41 19:15 Temp 98.8 98.6 98.8 98.6 Pulse 111 97 Resp 18 20 B/P (MAP) 123/66 (85) 136/68 (90) Pulse Ox 96 93 O2 Delivery Room Air Room Air Room Air Room Air 08/15/18 08/16/18 08/16/18 08/16/18 19:15 00:00 04:00 07:00 Temp 98.4 98.2 97.6 98.4 98.2 97.6 Pulse 103 89 85 Resp 20 20 20 B/P (MAP) 129/66 (87) 136/60 (85) 129/64 (85) Pulse Ox 96 O2 Delivery Room Air Room Air Room Air Room Air Intake and Output 08/15/18 08/15/18 08/16/18 15:00 23:00 07:00 Intake Total 0 ml Output Total 350 ml 250 ml Balance -350 ml -250 ml Laboratory Tests Test 08/15/18 00:00 08/15/18 10:46 08/15/18 16:49 08/16/18 05:33 Urine Collection Type VOID Urine Color STRAW Urine Appearance CLEAR Urine Bilirubin NEGATIVE MG/DL Urine Ketones NEGATIVE Urine Specific [place] 1.015 Urine pH 5 Urine Protein NEGATIVE Urine Urobilinogen NORMAL Urine Nitrate NEGATIVE Urine Leukocyte Esterase NEGATIVE Urine Blood NEGATIVE Urine Glucose NORMAL White Blood Count 16.2 10^3/uL 10.8 10^3/uL Red Blood Count 4.66 10^6/uL 3.86 10^6/uL Hemoglobin 13.9 g/dL 12.5 g/dL 11.4 g/dL Hematocrit 44.4 % 38.2 % 36.6 % Mean Corpuscular Volume 95.3 fL 94.8 fL Mean Corpuscular Hemoglobin 29.8 pg 29.5 pg Mean Corpuscular Hemoglobin Concent 31.3 g/dL 31.1 g/dL Red Cell Distribution Width 14.9 % 15.0 % Platelet Count 177 10^3/uL 154 10^3/uL Mean Platelet Volume 13.2 fL 14.0 fL Neutrophils (%) (Auto) 72.2 % 71.5 % Lymphocytes (%) (Auto) 13.8 % 13.0 % Monocytes (%) (Auto) 12.3 % 13.3 % Neutrophils # (Auto) 11.7 10^3/uL 7.7 10^3/uL Lymphocytes # (Auto) 2.2 10^3/uL 1.4 10^3/uL Monocytes # (Auto) 2.0 10^3/uL 1.4 10^3/uL Absolute Immature Granulocyte (auto 0.10 10^3 u/L 0.05 10^3 u/L Eosinophils % 0.6 % 1.1 % Basophils % 0.5 % 0.6 % Basophils # 0.1 10^3/uL 0.1 10^3/uL Eosinophil Count 0.1 10^3/uL 0.1 10^3/uL Prothrombin Time 11.4 SEC Prothrombin Time INR (Non-Therap) 1.1 Activated Partial Thromboplast Time 20.3 SEC Stool Occult Blood (IFOB) POSITIVE Sodium Level 146 mmol/L 145 mmol/L Potassium Level 4.5 mmol/L 4.0 mmol/L Chloride Level 109.0 mmol/L 111.0 mmol/L Carbon Dioxide Level 23.7 mmol/L 25.5 mmol/L Anion Gap 17.8 12.5 Blood Urea Nitrogen 56 mg/dL 28 mg/dL Creatinine 0.79 mg/dL 0.66 mg/dL Estimated GFR () 119.5 147.0 BUN/Creatinine Ratio 70.0 42.0 Glucose Level 125 mg/dL 94 mg/dL Calcium Level 9.2 mg/dL 8.8 mg/dL Total Bilirubin 0.5 mg/dL 0.3 mg/dL Aspartate Amino Transf (AST/SGOT) 14 U/L 19 U/L Alanine Aminotransferase (ALT/SGPT) 19 U/L 7 U/L Alkaline Phosphatase 77 U/L 62 U/L Total Protein 7.7 g/dL 6.4 g/dL Albumin 3.6 g/dL 3.2 g/dL Globulin 4.1 3.2 Amylase Level 38 U/L Lipase 76 U/L Percent Immature Gran (Cell Imm) 0.60 % 0.50 % Helicobacter pylori Screen NEGATIVE Current Medications Medications (Trade) Dose Ordered Sig/Kathleen PRN Reason Start Time Stop Time Status Last Admin Carbidopa/Levodopa (Sinemet 25/100) 1 each Q4 08/15/18 16:00 09/14/18 15:59 08/15/18 16:08 Guaifenesin (Mucinex) 600 mg PRN PRN SHORTNESS OF BREATH 08/15/18 14:30 09/14/18 14:29 Pantoprazole Sodium 80 mg/ Sodium Chloride 100 ml @ 10 mls/hr Q10H 08/16/18 09:30 09/15/18 09:29 08/16/18 09:56 Potassium Chloride/Sodium Chloride 1,000 ml @ 100 mls/hr Q10H 08/16/18 09:30 09/15/18 09:29 08/16/18 09:56 Rasagiline (Azilect) 1 mg ACB 08/16/18 06:30 09/15/18 06:29 08/16/18 07:30 Ropinirole HCl (Requip) 0.5 mg QID 08/15/18 17:00 09/14/18 16:59 08/16/18 09:00 Course Sepsis Screening Results: Posi: NEGATIVE Sepsis Qualifier/Stage: NO DEFINITE RISK Vitals & review Data Vital Sign - Last 24 Hours 08/15/18 08/15/18 08/15/18 08/15/18 12:31 12:31 12:35 13:18 Temp 97.8 98.5 97.8 97.8 98.5 97.8 Pulse 124 124 124 Resp 18 18 18 B/P (MAP) 139/83 (101) Pulse Ox 98 98 O2 Delivery Room Air 08/15/18 08/15/18 08/15/18 08/15/18 13:27 16:30 17:41 19:15 Temp 98.8 98.6 98.8 98.6 Pulse 111 97 Resp 18 20 B/P (MAP) 123/66 (85) 136/68 (90) Pulse Ox 96 93 O2 Delivery Room Air Room Air Room Air Room Air 08/15/18 08/16/18 08/16/18 08/16/18 19:15 00:00 04:00 07:00 Temp 98.4 98.2 97.6 98.4 98.2 97.6 Pulse 103 89 85 Resp 20 20 20 B/P (MAP) 129/66 (87) 136/60 (85) 129/64 (85) Pulse Ox 96 O2 Delivery Room Air Room Air Room Air Room Air Intake and Output 08/15/18 08/15/18 08/16/18 15:00 23:00 07:00 Intake Total 0 ml Output Total 350 ml 250 ml Balance -350 ml -250 ml Laboratory Tests Test 08/15/18 00:00 08/15/18 10:46 08/15/18 16:49 08/16/18 05:33 Urine Collection Type VOID Urine Color STRAW Urine Appearance CLEAR Urine Bilirubin NEGATIVE MG/DL Urine Ketones NEGATIVE Urine Specific [place] 1.015 Urine pH 5 Urine Protein NEGATIVE Urine Urobilinogen NORMAL Urine Nitrate NEGATIVE Urine Leukocyte Esterase NEGATIVE Urine Blood NEGATIVE Urine Glucose NORMAL White Blood Count 16.2 10^3/uL 10.8 10^3/uL Red Blood Count 4.66 10^6/uL 3.86 10^6/uL Hemoglobin 13.9 g/dL 12.5 g/dL 11.4 g/dL Hematocrit 44.4 % 38.2 % 36.6 % Mean Corpuscular Volume 95.3 fL 94.8 fL Mean Corpuscular Hemoglobin 29.8 pg 29.5 pg Mean Corpuscular Hemoglobin Concent 31.3 g/dL 31.1 g/dL Red Cell Distribution Width 14.9 % 15.0 % Platelet Count 177 10^3/uL 154 10^3/uL Mean Platelet Volume 13.2 fL 14.0 fL Neutrophils (%) (Auto) 72.2 % 71.5 % Lymphocytes (%) (Auto) 13.8 % 13.0 % Monocytes (%) (Auto) 12.3 % 13.3 % Neutrophils # (Auto) 11.7 10^3/uL 7.7 10^3/uL Lymphocytes # (Auto) 2.2 10^3/uL 1.4 10^3/uL Monocytes # (Auto) 2.0 10^3/uL 1.4 10^3/uL Absolute Immature Granulocyte (auto 0.10 10^3 u/L 0.05 10^3 u/L Eosinophils % 0.6 % 1.1 % Basophils % 0.5 % 0.6 % Basophils # 0.1 10^3/uL 0.1 10^3/uL Eosinophil Count 0.1 10^3/uL 0.1 10^3/uL Prothrombin Time 11.4 SEC Prothrombin Time INR (Non-Therap) 1.1 Activated Partial Thromboplast Time 20.3 SEC Stool Occult Blood (IFOB) POSITIVE Sodium Level 146 mmol/L 145 mmol/L Potassium Level 4.5 mmol/L 4.0 mmol/L Chloride Level 109.0 mmol/L 111.0 mmol/L Carbon Dioxide Level 23.7 mmol/L 25.5 mmol/L Anion Gap 17.8 12.5 Blood Urea Nitrogen 56 mg/dL 28 mg/dL Creatinine 0.79 mg/dL 0.66 mg/dL Estimated GFR () 119.5 147.0 BUN/Creatinine Ratio 70.0 42.0 Glucose Level 125 mg/dL 94 mg/dL Calcium Level 9.2 mg/dL 8.8 mg/dL Total Bilirubin 0.5 mg/dL 0.3 mg/dL Aspartate Amino Transf (AST/SGOT) 14 U/L 19 U/L Alanine Aminotransferase (ALT/SGPT) 19 U/L 7 U/L Alkaline Phosphatase 77 U/L 62 U/L Total Protein 7.7 g/dL 6.4 g/dL Albumin 3.6 g/dL 3.2 g/dL Globulin 4.1 3.2 Amylase Level 38 U/L Lipase 76 U/L Percent Immature Gran (Cell Imm) 0.60 % 0.50 % Helicobacter pylori Screen NEGATIVE Current Medications Medications (Trade) Dose Ordered Sig/Kathleen PRN Reason Start Time Stop Time Status Last Admin Carbidopa/Levodopa (Sinemet 25/100) 1 each Q4 08/15/18 16:00 09/14/18 15:59 08/15/18 16:08 Guaifenesin (Mucinex) 600 mg PRN PRN SHORTNESS OF BREATH 08/15/18 14:30 09/14/18 14:29 Pantoprazole Sodium 80 mg/ Sodium Chloride 100 ml @ 10 mls/hr Q10H 08/16/18 09:30 09/15/18 09:29 08/16/18 09:56 Potassium Chloride/Sodium Chloride 1,000 ml @ 100 mls/hr Q10H 08/16/18 09:30 09/15/18 09:29 08/16/18 09:56 Rasagiline (Azilect) 1 mg ACB 08/16/18 06:30 09/15/18 06:29 08/16/18 07:30 Ropinirole HCl (Requip) 0.5 mg QID 08/15/18 17:00 09/14/18 16:59 08/16/18 09:00 Plan Discharge Date: Aug 19, 2018 Dicharge DX: Melena, GI bleed, Anemia Discharge Disposition: Stable Plan ok to d/c to home with home health medications: per med rec list Return to care for worsening/concerning symptoms f/U with Surgery/PCP within 1-2 weeks Diet: cont tube feeds Activity: ambulate w/ assistance BALAJI SANTIAGO MD Aug 19, 2018 10:25
[2018-08-19 12:05] VITALS: BP 129/88
--- NOTE | 2018-08-19 12:12 | NUR ---
Discharge Patient discharged home with his , taking all belongings. Patient to continue [facility]. IV discontinued, Cath intact. Telemetry DCd, removed from the room. To the Exit in a wheelchair assisted by this RN to awaiting vehicle. Patient assisted into vehicle, and to buckle in.
[2018-08-19] MEDS ORDERED: PEPCID PO SCH (21:00)
== END 2018-08-19 11:50 | disposition home health service (06) | DRG 378 ==
LOC: ER 10:29 → MS 11:51 → EDBEDREQ 11:52 → OBSVTOIN 16:05
PROVIDERS: ADMIT Family Medicine; ATTEND Family Medicine
PROC: 0DB68ZX Excision of Stomach, Via Natural or Artificial Opening Endoscopic, Diagnostic (ICD-10-PCS; principal; 2018-08-17 07:47)
PROC: 0DJD8ZZ Inspection of Lower Intestinal Tract, Via Natural or Artificial Opening Endoscopic (ICD-10-PCS; 2018-08-17 07:47)
DX: K29.71 Gastritis, unspecified, with bleeding (principal); D62 Acute posthemorrhagic anemia; G20 Parkinson's disease; I69.891 Dysphagia following other cerebrovascular disease; K44.9 Diaphragmatic hernia without obstruction or gangrene; Z93.1 Gastrostomy status; Z88.1 Allergy status to other antibiotic agents; Z87.11 Personal history of peptic ulcer disease; Z87.891 Personal history of nicotine dependence
CPT/HCPCS: 36415; 43239; 45378; 71045; 74177; 80053; 81002; 82150; 82272; 82948; 83690; 85014; 85018; 85025; 85610; 85730; 86677; 86900; 88305; C9113; G0378; J2001; J2765; J3010; J3490; J7050; J7120; Q9965; G0105

== ENCOUNTER 2020-04-18 19:45 | Emergency (ER) | payer MEDICARE ==
[~2020-04-18] VITALS: Ht 172.7 cm; Wt 76.7 kg
[~2020-04-18 19:45] MED LIST changes: +CARB1CAP PO; +FAMO20TA5 PO; +GUAI600T31 PO; +PANT40TA3 PO; +RASA1TAB4 PO; +ROPI0.5T PO
[2020-04-18 19:55] VITALS: BP 150/64
[2020-04-18] MEDS ORDERED: NS 1000ML 1,000 ML ONE (20:02)
[2020-04-18] MEDS ORDERED: NS 1000ML 1,000 ML IV STA (20:07)
[2020-04-18] MEDS ORDERED: TYLENOL PO STA (20:07)
[2020-04-18] MEDS ORDERED: TYLENOL PO ONE (20:11)
--- NOTE | 2020-04-18 20:23 | ER.PDOC ---
General Chief Complaint: General Complaint Stated Complaint: WEAKNESS Time seen by MD: 20:11 Source: other (caregiver) Exam Limitations: clinical condition History of Present Illness Initial Comments reports generalized weakness and fever onset today. No other sx. Timing/Duration: gradual Severity: mild, moderate Associated Symptoms: fever/chills Allergies: Coded Allergies: naproxen (Unverified Allergy, Unknown, HIVES, TONGUE SWELLING, 02/14/18) Home Meds Active Scripts Pantoprazole Sodium (PROTONIX) 40 Mg Tablet.dr, 40 MG PO DAILY for 30 Days, #30 TAB 0 Refills Prov:BALAJI SANTIAGO MD 08/19/18 Reported Medications Rasagiline Mesylate (Rasagiline Mesylate) 1 Mg Tablet, 1 MILLIGRAM PO DAILY24 08/15/18 Ropinirole Hcl (REQUIP) 0.5 Mg Tablet, 1 TAB PO QID, #30 TAB 1 Refill 08/15/18 Carbidopa/Levodopa (Rytary ER 23.75 mg-95 mg Cap) 1 Each Capsule.er, 1 EACH PO ACL 08/15/18 Carbidopa/Levodopa (Rytary ER 23.75 mg-95 mg Cap) 1 Each Capsule.er, 1 EACH PO ACB 08/15/18 Carbidopa/Levodopa (SINEMET 25-100 MG TABLET) 1 Each Tablet, 1 EACH PO Q4, TABLET 02/14/18 Discontinued Reported Medications Guaifenesin (MUCINEX) 600 Mg Tablet.er, 1 TAB PO PRN PRN for SHORTNESS OF BREATH, #14 TAB 08/15/18 Discontinued Scripts Famotidine (FAMOTIDINE) 20 Mg Tablet, 20 MG PO BID for 30 Days, #60 TABLET 0 Refills Prov:BALAJI SANTIAGO MD 08/19/18 Constitutional: fever, malaise, weakness EENTM: no symptoms reported Respiratory: no symptoms reported Cardiovascular: no symptoms reported Gastrointestinal: no symptoms reported Genitourinary: no symptoms reported Musculoskeletal: no symptoms reported Skin: no symptoms reported Past Medical History Medical History: parkinson, other ([place] encephalitis with chronic mental disability) Surgical History: knee, other (feeding tube) Family History Significant Family History: no pertinent family hx, other (lives with who is primary caregiver) Social History Smoking: non-smoker Alcohol Use: none Drug Use: none Physical Exam General Appearance: alert, no distress Eye: eyes nml inspection Neck: nml inspection, supple Respiratory: no resp.distress, breath sounds nml Abdomen: non-tender CVS: reg rate & rhythm, heart sounds nml Skin: color nml, no rash, warm/dry Extremities: non-tender, nml ROM, no pedal edema NEURO/PSYCH: depressed affect, other (patient is chronically noncommunicative verbally x 10 years) Results/Orders Results/Orders Orders - JIE BROOKS DO Cbc With Auto Diff (04/18/20 20:07) Comprehensive Metabolic Panel (04/18/20 20:07) Creatine Kinase (04/18/20 20:07) Creatine Kinase Mb (04/18/20 20:07) Probnp B-Type Tax Accountant (04/18/20 20:07) Troponin I (04/18/20 20:07) Blood Culture (04/18/20 20:07) Xr Chest 1v (04/18/20 20:07) PT (04/18/20 20:07) Partial Thromboplastin Time. (04/18/20 20:07) Ekg-Routine (04/18/20 20:07) Saline Lock (04/18/20 20:07) Influenza A&B (04/18/20 20:07) Strep Screen (04/18/20 20:07) Novel Coronavirus 2019(Dshs) (04/18/20 20:07) 0.9 % Sodium Chloride (Ns 1000ml) (04/18/20 20:07) Acetaminophen (Tylenol) (04/18/20 20:07) Acetaminophen (Tylenol) (04/18/20 20:11) Lactic Acid(Ml) (04/18/20 20:28) Ceftriaxone Sodium (Rocephin) (04/18/20 21:02) Vital Signs Date Time Temp Pulse Resp B/P (MAP) Pulse Ox O2 Delivery O2 Flow Rate FiO2 04/18/20 21:00 110 18 131/65 (87) 97 Room Air 04/18/20 19:55 100.8 111 20 04/18/20 19:55 100.8 111 20 150/64 (92) 98 Room Air 04/18/20 19:55 100.8 111 20 98 Administered Medications Medications (Trade) Dose Ordered Sig/Kathleen Route PRN Reason Start Time Stop Time Status Last Admin Dose Admin Acetaminophen (Tylenol) 1,000 mg STAT STAT PO 04/18/20 20:07 04/18/20 20:13 DC 04/18/20 20:38 1,000 MG Sodium Chloride 1,000 ml @ 1,200 mls/hr Q50M STAT IV 04/18/20 20:07 04/18/20 20:56 DC 04/18/20 20:38 1,200 MLS/HR Laboratory Tests Test 04/18/20 20:28 04/18/20 20:30 04/18/20 20:48 White Blood Count 12.7 10^3/uL (4.5-11.0) H Red Blood Count 5.64 10^6/uL (4.50-5.90) Hemoglobin 16.4 g/dL (13.9-16.3) H Hematocrit 50.6 % (37.0-53.0) Mean Corpuscular Volume 89.7 fL (78-100) Mean Corpuscular Hemoglobin 29.1 pg (26-34) Mean Corpuscular Hemoglobin Concent 32.4 g/dL (33-36.5) L Red Cell Distribution Width 12.9 % (11.5-14.5) Platelet Count 196 10^3/uL (150-400) Mean Platelet Volume 12.3 fL (7.8-11.0) H Neutrophils (%) (Auto) 90.7 % (41.0-85.0) *H Lymphocytes (%) (Auto) 3.0 % (24.0-44.0) *L Monocytes (%) (Auto) 5.7 % (5.0-12.0) Neutrophils # (Auto) 11.5 10^3/uL (1.8-7.7) H Lymphocytes # (Auto) 0.38 10^3/uL1 (1.0-4.8) L Monocytes # (Auto) 0.7 10^3/uL (0.3-0.8) Absolute Immature Granulocyte (auto 0.02 10^3 u/L (0-2) Absolute Eosinophils (auto) 0.0 10^3/uL (0.0-0.2) Immature Granulocytes % 0.20 % (0.00-0.50) Eosinophils % 0.2 % (0.0-5.0) Basophils % 0.2 % (0.0-0.2) Basophils # 0.0 10^3/uL (0.0-0.1) Prothrombin Time 11.0 SEC (9.3-11.3) Prothrombin Time INR (Non-Therap) 1.1 Activated Partial Thromboplast Time 23.9 SEC (24.67-30.72) Sodium Level 134 mmol/L (132-145) Potassium Level 4.2 mmol/L (3.6-5.2) Chloride Level 98.0 mmol/L (96-109) Carbon Dioxide Level 26.5 mmol/L (20.0-32) Anion Gap 13.7 Blood Urea Nitrogen 14 mg/dL (7-18) Creatinine 0.96 mg/dL (0.59-1.40) Estimated GFR () 94.8 (>/=60) Est GFR (CKD-EPI)(Non-Afr [place]) 78.4 (>/=60) BUN/Creatinine Ratio 14.0 Glucose Level 112 mg/dL (70-110) H Lactic Acid Level 4.3 mmol/L (0.5-1.9) *H Calcium Level 9.6 mg/dL (8.4-10.5) Total Bilirubin 2.0 mg/dL (0.2-1.0) H Aspartate Amino Transferase (AST) 315 U/L (0-35) H Alanine Aminotransferase (ALT) 99 U/L (12-78) H Alkaline Phosphatase 258 U/L (50-136) H Total Creatine Kinase 66 U/L (39-308) Creatine Kinase MB < 0.5 ng/mL (0.5-3.6) L Troponin I < 0.02 ng/mL (0.00-0.05) Pro-B-Type Natriuretic Peptide 160 pg/mL (0-125) H Total Protein 8.6 g/dL (6.4-8.2) H Albumin 3.9 g/dL (3.4-5.0) Globulin 4.7 Influenza Type A Antigen NEGATIVE (NEG) Influenza B Immunofluorescence NEGATIVE (NEG) Group A Streptococcus Screen NEGATIVE (NEGATIVE) Differential Total Cells Counted 100 #CELLS Segmented Neutrophils 94 % (31-76) H Lymphocytes 3 % (25-36) L Monocytes 3 % (3-9) Differential Comment NORMAL Platelet Estimate ADEQUATE Platelet Morphology NORMAL Progress Progress flu and strep are negative; transaminases and alk phos slightly elevated, but patient has no c/o NV or abd pain; lactic acid 4 Patient's became extremely upset at the hospital rule concerning staying with patient and checked him out AMA. I did provide a prescription of Azithromycin and patient did receive rocephin IV here. EKG/XRAY/CT/US EKG: no ST T wave changes EKG Comments: sinus tachycardia 114 XRAY: chest (left lung base atelectasis vs pneumonia) Consult/PCP Time Consult/PCP Called: 21:16 Consult/PCP: Dr. Oliva Reason/Comments: will admit Departure Time of Disposition: 21:16 Disposition: 07 AGAINST MEDICAL ADVICE Impression: Primary Impression: Pneumonia Condition: Improved Referrals: PCP,UNKNOWN (PCP) PRIMARY CARE PROVIDER Duration or Time Spent with Pa: 15 min Problem Qualifiers Primary Impression: Pneumonia Pneumonia type: due to unspecified organism Laterality: left Lung location: lower lobe of lung Qualified Codes: J18.9 - Pneumonia, unspecified organism JIE BROOKS DO Apr 18, 2020 20:23
[2020-04-18 20:39] LABS: BASOPHIL % 0.2 % (0.0-0.2); EOSINOPHIL % 0.2 % (0.0-5.0); LYMPHOCYTES # 0.38 10^3/uL1 (1.0-4.8); MEAN CORP HGB 29.1 pg (26-34); MONOCYTES # 0.7 10^3/uL (0.3-0.8); MONOCYTES % 5.7 % (5.0-12.0); NEUTROPHIL # 11.5 10^3/uL (1.8-7.7); NEUTROPHILS % 90.7 % (41.0-85.0); PLATELET COUNT 196 10^3/uL (150-400); RED CELL DISTRIBUTION WIDTH 12.9 % (11.5-14.5)
--- NOTE | 2020-04-18 20:51 | DIREP ---
PROCEDURE:CHEST 1 VIEW COMPARISON:[facility], CT, CT ABD/PELVIS W/ CONTRAST, 08/17/2018, 10:22 AM. [facility], CR, XRAY CHEST SINGLE VW, 08/15/2018, 03:48 PM. INDICATIONS:fever FINDINGS: LUNGS/PLEURA:Not seen on the right consistent with pneumonia or atelectasis. VASCULATURE:Normal. Unremarkable pulmonary vasculature. CARDIAC:Normal. No cardiac silhouette abnormality or cardiomegaly. MEDIASTINUM:Normal. No visible mass or adenopathy. BONES:Normal. No fracture or visible bony lesion. OTHER:Negative. CONCLUSION:Mild left lung base airspace disease suggesting pneumonia or atelectasis. Dictated by: Abbe Tripp M.D. on 04/18/2020 at 08:48 PM
--- NOTE | 2020-04-18 20:55 | PCM.EKG ---
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
[2020-04-18 21:00] VITALS: BP 131/65
[2020-04-18] MEDS ORDERED: ROCEPHIN 1,000 MG in NS 100ML 100 ML IV STA (21:02)
[2020-04-18 21:06] LABS: ALANINE AMINOTRANSFERASE(ML) 99 U/L (12-78); ALKALINE PHOSPHATASE 258 U/L (50-136); ASPARTATE AMINO TRANSFERASE 315 U/L (0-35); CALCIUM 9.6 mg/dL (8.4-10.5); CARBON DIOXIDE 26.5 mmol/L (20.0-32); GLUCOSE 112 mg/dL (70-110)
--- NOTE | 2020-04-18 21:15 | NUR ---
NIKOS DIAZ CALLED [facility] 4.3, EDP NOTIFIED
[2020-04-18 21:19] LABS: LYMPHOCYTE 3 % (25-36); MONOCYTE 3 % (3-9); SEGMENTED NEUTROPHILS 94 % (31-76)
[2020-04-18 21:20] LABS: DIFFERENTIAL COMMENT NORMAL
[2020-04-18] MEDS ORDERED: TYLENOL PO PRN (21:30)
[2020-04-18] MEDS ORDERED: ROCEPHIN ONE (21:42)
[2020-04-18 22:00] VITALS: BP 160/93
--- NOTE | 2020-04-18 22:20 | NUR ---
IV DC'D TIP INTACT, NO BLEEDING
--- NOTE | 2020-04-18 22:25 | NUR ---
AMA OF PATIENT STATES THAT SHE WOULD LIKE TO TRY ANTIBIOTICS AT HOME SINCE SHE ISN'T ALLOWED TO STAY WITH PATIENT UPSTAIRS DO TO HIM BEING PUI. SPOKE WITH DAUGHTER WHO IS AN RN AND THEY MADE THE DECISION TO TAKE PATIENT HOME ON ANTIBIOTICS. EDP EXPLAINED RISK AND CONSEQUENCES WITH OF PATIENT. PATIENT LEFT AMA, VITALS STABLE,PATIENT ALERT, AND EDP EXPLAINED WHAT TO WATCH FOR OR IF ANY CONCERNS TO COME BACK TO ED. SPOUSE VOICED UNDERSTANDING
[2020-04-19] MEDS ORDERED: ROCEPHIN 1,000 MG in NS 100ML 100 ML IV SCH (20:30)
== END 2020-04-18 22:25 | disposition left against medical advice (07) ==
LOC: ER 19:45 → MS 21:19 → UNDOADMIN 21:19 → ER 22:25
DX: J18.9 Pneumonia, unspecified organism (principal); Z20.828 Contact with and (suspected) exposure to other viral communicable diseases; R79.1 Abnormal coagulation profile
CPT/HCPCS: 36415; 71045; 80053; 82550; 82553; 83605; 83880; 84484; 85025; 85610; 85730; 87040 ×2; 87070; 87635; 87804 ×2; 87880; 93005; 96361; 96365; 99285; J0696 ×2; J7030; J7050; 87077; 87186; 96375